=== PATIENT | male | born 1985 | race Caucasian/White ===

== ENCOUNTER 2018-03-12 19:10 | Emergency (ER) | payer MEDICAID, SELFPAY ==
[2018-03-12 19:10] VITALS: BP 143/7; PULSE 88; RESP 16; TEMP 36.7; O2SAT 98; BMI 15.8
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
[2018-03-12] MEDS: Naproxen 250 MG Tablet 500 MG PO (21:02)
[2018-03-12 21:15] VITALS: PULSE 68; RESP 18; O2SAT 98
== END 2018-03-12 21:16 | disposition home or self-care (01) ==
PROVIDERS: Emergency Provider Emergency Medicine; Family Provider Family Medicine; PCP Family Medicine
DX: M54.5 Low back pain (principal); R20.2 Paresthesia of skin; Z72.0 Tobacco use
CPT/HCPCS: 99283

== ENCOUNTER 2018-12-03 07:12 | Emergency (ER) | payer MEDICAID, SELFPAY ==
[2018-12-03 07:13] VITALS: BP 126/68; PULSE 87; RESP 16; TEMP 38; O2SAT 96; BMI 17.8
--- NOTE | 2018-12-03 07:40 | ED.VISSUMM ---
- ER Visit Summary Date of Service: 12/03/18 Chief Complaint: Abscess History of Present Illness: The patient is a [address] Chris chowdary. He reports that he is an abscess to his left forearm that began 3 to 4 days ago. States he has pain that is 7 out of 10 in severity. Reports this morning he has been nausea and vomited once. He denies any abdominal pain. He does admit to a little cough. This is nonproductive. No shortness of breath. He has had a subjective fever and chills. Physical Examination: Vitals: 100.4, 126/68, 87, 16, 96% on room air which is not hypoxic. General: Well-nourished and well-developed. Head: Normocephalic atraumatic. Neck: Supple, no lymphadenopathy. No JVD. Nontender. Cardiovascular: Regular rate and rhythm. No murmurs. Respiratory: No respiratory distress. Clear to auscultation bilaterally. Abdominal: Soft, nontender, nondistended, normal bowel sounds. No guarding, rebound, or peritoneal signs. Back: Nontender. Extremities: Mild tenderness to palpation to the back of his left forearm where there is a 3 cm abscess with minimal surrounding erythema or induration. He is neurovascular intact distally. No edema. Neurologic: Alert and oriented ?3. Cranial nerves II through XII are intact. Normal strength and sensation. Psych: Normal affect. Emergency Department Course and Treatment: Patient does not have track hines. He does have a history of opiate use. However, he is on Suboxone and states that he has not used for 5 years. He had an IV placed and was given Toradol and Zofran IV. He had an I&D performed and tolerated it well. Treatment Plan: Patient will be discharged with Zofran and doxycycline. Instructed to follow-up Dr. Sahni in 2 days for a wound check. Return to the emergency department for any worsening symptoms. Disposition: To home in improved and stable condition. Impression: 1. Abscess left forearm. 2. I&D. Procedure Note: Abscess was cleansed with chlorhexidine soap. Anesthetized with 1% lidocaine without epinephrine. An incision was made with an 11 scalpel blade. A moderate amount of pus was drained. Curved hemostats were used to break up loculations. The wound was copiously irrigated with normal saline. It was loosely packed with iodoform gauze. The patient tolerated it well. This note was generated with [employer] dictation software. It may contain incorrect words, spelling, and punctuation that were not noted in review of the chart prior to signing ED Disposition - Plan for ED Patient: Instructions: ABSCESS, Incision and Drainage Prescriptions: Doxycycline 100 mg PO BID #20 cap Prescription Printed Ibuprofen [Motrin] 800 mg PO TID PRN PRN #20 tab PRN Reason: Pain Prescription Printed Ondansetron [Zofran Odt] 4 mg PO Q8H PRN PRN #10 tab PRN Reason: Nausea Prescription Printed Referrals: Chelsie Sahni DO [STAFF PHYSICIAN] - 2 Days for wound check
[2018-12-03] MEDS: 0.9% Normal Saline 1,000 ML 1000 ML IV (08:36)
[2018-12-03] MEDS: Ketorolac 30 MG/ML Syringe IV (08:36)
[2018-12-03] MEDS: Ondansetron 4 MG/2 ML Vial IV (08:36)
== END 2018-12-03 09:11 | disposition home or self-care (01) ==
PROVIDERS: Emergency Provider Emergency Medicine; Family Provider Family Medicine; PCP Family Medicine
DX: L02.414 Cutaneous abscess of left upper limb (principal); R05 Cough; R11.2 Nausea with vomiting, unspecified; F31.9 Bipolar disorder, unspecified; F41.9 Anxiety disorder, unspecified; Z79.899 Other long term (current) drug therapy; F17.200 Nicotine dependence, unspecified, uncomplicated
CPT/HCPCS: 10060; 96361; 96374; 96375; 99285; J7030; A4216; J2405

== ENCOUNTER 2018-12-23 21:36 | Emergency (ER) | payer MEDICAID, SELFPAY ==
[2018-12-23 21:39] VITALS: BP 127/73; PULSE 89; RESP 16; TEMP 36.7; O2SAT 97; BMI 15.1
--- NOTE | 2018-12-23 22:29 | ED.VIS.LOWEX ---
History of Present Illness Chief Complaint: Abscess Narrative: Patient presenting secondary to an abscess. Patient reports that over the last 3 days he has had the emergence of an abscess on his left thigh. He reports he has a history of these in the past. He reports that he used to be an IV drug user, has been clean for quite some time now. Patient denies any fevers associated with this. Pain is mild. No spontaneous drainage. Past Medical History - Allergies and Home Meds Allergies/Adverse Reactions: Allergies red dye Allergy (Verified 12/23/18 21:39) Swelling Primary Care Physician: Cal Ibrahim MD [Primary Care Provider] - 3-5 Days Smoking Status: Current every day smoker Review of Systems All systems negative except as indicated General: Denies: Fever Skin: Reports: Abscess Physical Exam Vital Signs/Narrative: Vital Signs Temp Pulse Resp BP Pulse Ox 12/23/18 21:39 98.1 F 89 16 127/73 H 97 - Extremity Exam Left Femur: - - Left medial thigh shows evidence of approximately a 3 cm area of fluctuance with small amount of surrounding erythema. No lymphogenic streaking. Tenderness to palpation noted in the area. General: Well nourished, Well developed Head: Normocephalic, Atraumatic Eyes: Perrl, EOMI ENT: No Trauma, Moist Mucous Membranes Neck: Nontender, Full ROM Cardiovascular: Regular rate, Regular rhythm, No murmurs Respiratory: No distress, CTA bilaterally, Chest nontender Abdomen: Soft, Nontender, Nondistended, Normal bowel sounds Neurological: Alert, Oriented x3, Cranial nerves II-XII grossly intact, Normal Strength, Normal Sensation Diagnostic/Tx/Re-eval - Medical Decision Making Patient presented with a thigh abscess. I did recommend to the patient that we perform incision and drainage, but he declined this. I did inform him that there is a high likelihood of antibiotic failure, but the patient will be placed on a course of Bactrim and Bactroban ointment and was recommended on warm compresses and follow-up with primary care. ED Disposition - Plan for ED Patient: Disposition: Home or Assisted Living Diagnosis: Abscess of left thigh Instructions: ABSCESS, Antiobiotic Treatment Only Prescriptions: Smz/Tmp Ds [Bactrim Ds] 1 tab PO BID #14 tab Prescription Printed Mupirocin [Bactroban] 1 applic TOPICAL TID #1 tube Prescription Printed Referrals: Cal Ibrahim MD [Primary Care Provider] - 3-5 Days
[2018-12-23] MEDS: Smz/Tmp Ds Tablet 1 TABLET PO (22:33)
[2018-12-23 22:49] VITALS: BP 122/60; PULSE 81; RESP 18; O2SAT 98
== END 2018-12-23 22:50 | disposition home or self-care (01) ==
LOC: ED 22:34
PROVIDERS: Emergency Provider Emergency Medicine; Family Provider Family Medicine; PCP Family Medicine
DX: L02.416 Cutaneous abscess of left lower limb (principal); F17.200 Nicotine dependence, unspecified, uncomplicated
CPT/HCPCS: 99283

== ENCOUNTER 2019-02-26 00:01 | Emergency (ER) | payer MEDICAID, SELFPAY ==
[2019-02-26 00:04] VITALS: BP 127/70; PULSE 95; RESP 16; TEMP 36.8; O2SAT 98; BMI 16.7
--- NOTE | 2019-02-26 00:17 | ED.VISSUMM ---
- ER Visit Summary Date of Service: 02/26/19 Chief Complaint: [Redness and swelling of the right arm History of Present Illness: The patient is a 33 M [presents to the emergency department with redness and swelling in the right arm that he noticed about an hour ago. Patient states that he has prior history of heroin addiction but has been clean for about 5 years. Patient states he is been under a lot of stress and has had the urge to shoot up. Patient states that for 5 days ago he decided to attempt to shoot icewater into his vein to feel the washburn. The fevers. Patient did state that he had some sweats yesterday that lasted about few minutes after getting home from the [facility] and taken off his socks. No further chills or sweats today.] Physical Examination: [HEENT-PERRLA, EOMI. Cranial nerves II through XII grossly intact. TMs clear. Mucous membranes moist. No adenopathy. Cardiovascular-regular rate and rhythm without murmur or ectopy Lungs-clear to auscultation, chest wall stable without crepitus or subcu emphysema Abdomen-normoactive bowel sounds, soft, nontender, no rebound or rigidity, no peritoneal signs. Extremities-intact ?4, normal range of motion, normal pulses, atraumatic. Right arm-patient does have erythema to the upper arm along the distribution of the cephalic vein and there is some slight induration of the cephalic vein. No significant edema of the arm. He is neurovascular intact distally with normal station normal cap refill. No abscesses noted.] Test Results: [None indicated] Emergency Department Course and Treatment: [We will start on clindamycin and given a dose of naproxen.] Treatment Plan: [Patient will be given a perception for clindamycin and also advised to use ibuprofen or naproxen. Also advised to use warm compresses to the area. I suspect patient likely has a superficial thrombophlebitis. Will cover him with clindamycin for possible early cellulitis. Should follow-up with his primary care physician within the next 2 to 3 days for repeat exam and wound check.] Disposition: [Discharged home in stable condition] Impression: [Colitis right arm Superficial thrombophlebitis] This note was generated with [employer] dictation software. It may contain incorrect words, spelling, and punctuation that were not noted in review of the chart prior to signing ED Disposition - Plan for ED Patient: Referrals: Cal Ibrahim MD [Primary Care Provider] -
--- NOTE | 2019-02-26 00:21 | ED.DEP ---
ED Disposition - Plan for ED Patient: Instructions: Cellulitis, THROMBOPHLEBITIS, Superficial Prescriptions: Clindamycin HCl [Cleocin] 300 mg PO Q6H #40 cap Prescription Printed Naproxen [Naprosyn] 500 mg PO BID PRN #20 tab Prescription Printed Referrals: Cal Ibrahim MD [Primary Care Provider] - 2 Days for wound check
[2019-02-26] MEDS: Naproxen 500 MG Tablet PO (00:24)
[2019-02-26] MEDS: Clindamycin HCl 150 MG Capsule 300 MG PO (00:24)
[2019-02-26 00:31] VITALS: RESP 17
== END 2019-02-26 00:31 | disposition home or self-care (01) ==
PROVIDERS: Emergency Provider Emergency Medicine; Family Provider Family Medicine; PCP Family Medicine
DX: L03.113 Cellulitis of right upper limb (principal); I80.8 Phlebitis and thrombophlebitis of other sites; Z72.0 Tobacco use
CPT/HCPCS: 99283

== ENCOUNTER 2019-03-15 11:06 | Emergency (ER) | payer MEDICAID, SELFPAY ==
[2019-03-15 11:07] VITALS: BP 113/78; PULSE 97; RESP 17; TEMP 36.3; O2SAT 98; BMI 16.8
--- NOTE | 2019-03-15 12:34 | ED.VIS.GEN ---
History of Present Illness Chief Complaint: Dental Informant: Patient Onset: Days Narrative: Patient presents to the ED with left-sided dental pain. He states left upper dental pain is greater than the lower. He does have poor dentition he reports. He has been trying Orajel and ibuprofen without relief. He is requesting dental block.. He denies any fever, chills, nausea, vomiting. He is planning on contacting a dentist on Sunday. Past Medical History - Allergies and Home Meds Allergies/Adverse Reactions: Allergies red dye Allergy (Verified 03/15/19 11:07) Swelling Primary Care Physician: Cal Ibrahim MD [Primary Care Provider] - Smoking Status: Current every day smoker Review of Systems General: Denies: Chills, Fever, Sweats Eyes: Denies: Visual changes - bilaterally, Diplopia ENT: Reports: - - Dental pain. Denies: Rhinorrhea, Sore throat Cardiovascular: Denies: Chest pain, Palpitations Respiratory: Denies: Dyspnea, Cough, Dyspnea on exertion Gastrointestinal: Denies: Abdominal pain, Nausea, Vomiting, Diarrhea, Melena, Hematochezia Genitourinary: Denies: Dysuria, Hematuria, Frequency Musculoskeletal: Denies: Back pain, Extremity Pain Skin: Denies: Rash, Wounds Neurological: Denies: Headache, Weakness, Numbness Physical Exam Vital Signs/Narrative: Vital Signs Temp Pulse Resp BP Pulse Ox 03/15/19 11:07 97.3 F L 97 17 113/78 98 General: Well nourished, Well developed, No Acute Distress Head: Normocephalic, Atraumatic Eyes: Perrl, EOMI ENT: Moist mucous membranes, No rhinorrhea, - - Poor dentition. Fracture to left upper molar. No surrounding abscess. Oropharynx clear. Neck: Supple, Nontender Cardiovascular: Regular rate, Regular rhythm, No murmurs Respiratory: No distress, CTA bilaterally, Chest nontender Abdomen: Soft, Nontender, Nondistended, Normal bowel sounds Back: Nontender, Normal Inspection Extremities: Nontender, No edema Skin: Normal color, No rash Neurological: Alert, Oriented x3, Cranial nerves II-XII grossly intact, Normal Strength, Normal Sensation Psychological: Normal affect, Normal Mood Diagnostic/Tx/Re-eval - Medical Decision Making Patient presents to the ED with left-sided dental pain. I was able to perform history and physical exam on the patient. I discussed anti-inflammatories and the potential for prescription of antibiotic therapy, however patient declined. He states he would just like a dental block. Prior to being evaluated by attending physician, patient stated that he would come back when the ER was not as busy. Patient was in no acute distress. Impression: L sided dental pain Disposition: [facility] ED Disposition - Plan for ED Patient: Referrals: Cal Ibrahim MD [Primary Care Provider] -
== END 2019-03-15 12:42 | disposition left against medical advice (07) ==
PROVIDERS: Emergency Provider Physician Assistant; Family Provider Family Medicine; PCP Family Medicine
DX: K08.89 Other specified disorders of teeth and supporting structures (principal); F17.200 Nicotine dependence, unspecified, uncomplicated
CPT/HCPCS: 99282

== ENCOUNTER 2019-05-23 20:21 | Emergency (ER) | payer MEDICAID, SELFPAY ==
[2019-05-23 20:22] VITALS: BP 147/90; PULSE 111; RESP 14; TEMP 36.9; O2SAT 94; BMI 19.3
--- NOTE | 2019-05-23 20:27 | EKG12_ITS ---
Test Reason : CP Blood Pressure : / mmHG Vent. Rate : 094 BPM Atrial Rate : 094 BPM P-R Int : 160 ms QRS Dur : 088 ms QT Int : 354 ms P-R-T Axes : 074 079 068 degrees QTc Int : 442 ms Normal sinus rhythm Nonspecific ST abnormality Abnormal ECG Confirmed by CHRIS REED, NIRANJAN ([id number]), associate editor CAMI SHEPARD ([id number]) on 05/25/2019 10:07:52 AM Referred By: YENNY Confirmed By:WILFRID PEREZ MD
--- NOTE | 2019-05-23 20:55 | RAD_ITS ---
STUDY: X-RAY CHEST REASON FOR EXAM: Male, 33 years old. Chest tightness and anxiety. TECHNIQUE: PA and lateral. COMPARISON: 11/22/2016. FINDINGS: The lungs are clear and expanded. There is no demonstrated pleural abnormality. Normal size heart. Normal mediastinum and danita. Normal visualized pulmonary arteries. Normal visualized aortic arch and descending thoracic aorta. Normal visualized thoracic spine. Normal visualized ribs, clavicles, and shoulders. There is no demonstrated abnormality of the visualized soft tissue structures of the upper abdomen. RAD/Chest PA and Lateral IMPRESSION: Normal x-ray examination of the chest. Electronically Signed: Darcie Tiwari MD at 22:47 EST Tel , Service support ,
[2019-05-23] MEDS: cycloBENZAPRine HCl 10 MG Tablet PO (22:24)
[2019-05-23 22:25] VITALS: BP 147/90; PULSE 67; RESP 12; O2SAT 97
--- NOTE | 2019-05-23 23:10 | ED.VISSUMM ---
- ER Visit Summary Date of Service: 05/23/19 Chief Complaint: Chest pain History of Present Illness: The patient is a 33 M who presents with 1 hour of chest pain. The pain feels like pressure. It is over his left chest and radiates to the back. Associated with tiredness, eyes burning, fever, chills, and sweats. Nothing seemed to bring this on or make it worse. Nothing seems to make it better. He never had this before. He is a smoker but denies any other medical history. Denies any history of heart disease, aortic disease, lung disease, or blood clots. Denies trauma. Physical Examination: Heart rate 111. Otherwise vitals normal. Afebrile. He appears uncomfortable but not toxic or in distress. Heart is tachycardic but regular. Lungs are clear. Chest wall diffusely tender to palpation over the left side. Pain is reproducible. Abdomen is soft. Extremities nontender with no edema. Skin is normal. Test Results: EKG shows sinus rhythm at a rate of [address] changes. No sign of ischemia or infarction pattern. Chest x-ray normal. Emergency Department Course and Treatment: Patient presents with chest pain and infectious symptoms. I was concerned for bronchitis or pneumonia. He has nothing to suggest cardiac disease, PE, aortic disease. His chest x-ray was normal. His EKG was unremarkable. Patient declined pain medicine. Later, he requested a muscle relaxer. He was treated with Flexeril. I suspect this is myofascial pain, and there may be some component of anxiety. He has a history of this. He is otherwise low or no risk for other thoracic pathology. No indication for further testing, hospitalization, or other emergent care. Patient will be discharged on non-narcotic pain meds and muscle relaxers. Return for any new or worsening issues. Treatment Plan: As above Disposition: Discharge Impression: Atypical chest pain This note was generated with [employer] dictation software. It may contain incorrect words, spelling, and punctuation that were not noted in review of the chart prior to signing ED Disposition - Plan for ED Patient: Referrals: Cal Ibrahim MD [Primary Care Provider] -
--- NOTE | 2019-05-23 23:14 | ED.DEP ---
ED Disposition - Plan for ED Patient: Instructions: CHEST PAIN, Uncertain Cause Prescriptions: cycloBENZAPRine HCl [Flexeril] 10 mg PO TID PRN #20 tablet PRN Reason: Muscle Spasm Naproxen [Naprosyn] 500 mg PO BID PRN #20 tablet Referrals: Cal Ibrahim MD [Primary Care Provider] -
[2019-05-23 23:47] VITALS: BP 147/90; PULSE 60; RESP 15; O2SAT 96
== END 2019-05-23 23:47 | disposition home or self-care (01) ==
PROVIDERS: Emergency Provider Emergency Medicine; Family Provider Family Medicine; PCP Family Medicine
DX: R07.89 Other chest pain (principal); F41.9 Anxiety disorder, unspecified; Z72.0 Tobacco use
CPT/HCPCS: 71046; 93005; 99285; J7030; A4216

== ENCOUNTER 2019-05-27 18:57 | Emergency (ER) | payer MEDICAID, SELFPAY ==
[2019-05-27 18:57] VITALS: BP 136/91; PULSE 95; RESP 15; TEMP 36.9; O2SAT 100; BMI 16.7
--- NOTE | 2019-05-27 19:11 | ED.VIS.GEN ---
History of Present Illness Chief Complaint: Cellulitis Informant: Patient Onset: Days Context: Gradual Onset Timing: Continuous Current Severity: Moderate Maximum Severity: Moderate Narrative: The patient presents to the emergency department with right elbow pain. He states that for the past 2 or 3 days, he had some redness along his right elbow. He states it would hurt to fully extend the elbow. He denies any trauma. He denies any fevers or chills. He states today, the redness got a little bit worse. He does have a history of IV drug abuse, but states he is been clean for greater than 6 months. He denies any history immunosuppression. He is also concerned that he may have a dental infection. He states he just wanted to get it all checked out. Prior similar symptoms: No Recent Illness/Hospitalization: No Past Medical History - Allergies and Home Meds Allergies/Adverse Reactions: Allergies red dye Allergy (Verified 05/27/19 18:59) Swelling Primary Care Physician: Cal Ibrahim MD [Primary Care Provider] - Prior records reviewed: Yes Past Medical History: - Surgical History: noncontributory Smoking Status: Current every day smoker Review of Systems General: Denies: Chills, Fever, Sweats Eyes: Denies: Visual changes - bilaterally, Diplopia ENT: Denies: Rhinorrhea, Sore throat Cardiovascular: Denies: Chest pain, Palpitations Respiratory: Denies: Dyspnea, Cough, Dyspnea on exertion Gastrointestinal: Denies: Abdominal pain, Nausea, Vomiting, Diarrhea, Melena, Hematochezia Genitourinary: Denies: Dysuria, Hematuria, Frequency Musculoskeletal: Denies: Back pain, Extremity Pain Skin: Denies: Rash, Wounds Neurological: Denies: Headache, Weakness, Numbness Physical Exam Vital Signs/Narrative: Vital Signs Temp Pulse Resp BP Pulse Ox 05/27/19 18:57 98.5 F 95 15 136/91 H 100 Inital Vital Signs reviewed: Yes General: Well nourished, Well developed, No Acute Distress Head: Normocephalic, Atraumatic Eyes: Perrl, EOMI ENT: Moist mucous membranes, No rhinorrhea Neck: Supple, Nontender Cardiovascular: Regular rate, Regular rhythm, No murmurs Respiratory: No distress, CTA bilaterally, Chest nontender Abdomen: Soft, Nontender, Nondistended, Normal bowel sounds Back: Nontender, Normal Inspection Extremities: No edema, Tenderness - Mild tenderness and erythema over the right elbow bursa sac. No skin laceration or evidence of trauma. Mild surrounding cellulitis. No streaking. Normal pulses. Skin: Normal color, No rash Neurological: Alert, Oriented x3, Cranial nerves II-XII grossly intact, Normal Strength, Normal Sensation Psychological: Normal affect, Normal Mood Diagnostic/Tx/Re-eval - Medical Decision Making The patient does have an olecranon bursitis. I do have some suspicion that this may be infectious, but the patient also has overlying cellulitis. I am hesitant to drain the area given the cellulitis. He said no trauma. The skin is intact. The pain does not involve the joint itself. It is only on the extremes of motion. Given his also reports of dental pain, I am going to treat him single line with clindamycin. He is comfortable with this plan of care. I did nurses' association counselor him on the importance of having this reevaluated within the next 24 to 48 hours if is not improving or worsening in any way. He is comfortable with this plan of care. Impression 1. Olecranon bursitis with cellulitis ED Disposition - Plan for ED Patient: Instructions: Bursitis, Elbow (Olecranon) Prescriptions: Clindamycin [Cleocin] 300 mg PO 4X/DAY #80 cap Prescription Printed Referrals: Cal Ibrahim MD [Primary Care Provider] -
== END 2019-05-27 19:33 | disposition home or self-care (01) ==
LOC: ED 19:18
PROVIDERS: Emergency Provider Emergency Medicine; Family Provider Family Medicine; PCP Family Medicine
DX: M70.21 Olecranon bursitis, right elbow (principal); L03.113 Cellulitis of right upper limb; F17.200 Nicotine dependence, unspecified, uncomplicated
CPT/HCPCS: 99282

== ENCOUNTER 2019-06-04 18:53 | Emergency (ER) | payer MEDICAID, SELFPAY ==
[2019-06-04 18:53] VITALS: BP 116/85; PULSE 82; RESP 16; TEMP 37.6; O2SAT 99; BMI 16.7
--- NOTE | 2019-06-04 19:41 | ED.VIS.INJ ---
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 He cut his left finger with a utility knife. This occurred 3 hours prior to presentation. Tetanus is up-to-date. He denies paresthesia, anesthesia or motor weakness. He has no other complaints. Prior similar symptoms: Yes Recent Illness/Hospitalization: No - Past Medical History (1) No significant past medical history Status: Acute Past Medical History - Allergies and Home Meds Allergies/Adverse Reactions: Allergies red dye Allergy (Verified 05/27/19 18:59) Swelling Primary Care Physician: Cal Ibrahim MD [Primary Care Provider] - Prior records reviewed: No Past Medical History: None Surgical History: noncontributory Lives: Alone Smoking Status: Current every day smoker Alcohol: Rare Drugs: None Review of Systems Musculoskeletal: Denies: Myalgias, Arthralgias, Neck pain, Back pain, Swelling, Extremity Pain Skin: Reports: Wounds. Denies: Rash, Abrasions Neurological: Denies: Weakness, Parasthesia, Numbness Hematologic: Denies: Easy bruising, Easy bleeding Physical Exam Vital Signs/Narrative: Vital Signs Temp Pulse Resp BP Pulse Ox 06/04/19 18:53 99.7 F H 82 16 116/85 H 99 Inital Vital Signs reviewed: Yes General: Well nourished, Well developed Head: Normocephalic, Atraumatic Eyes: Perrl, EOMI. Negative for: Pale conjunctiva, Scleral icterus Cardiovascular: Regular rate, Regular rhythm, No murmurs Respiratory: No distress Extremeties: There is a 2.3 cm laceration proximal to the PIP joint left index finger on the radial side. The flexor digitorum superficialis and flexor digitorum profundus are intact. The extensor in the site tendon is intact. Capillary refill is normal. Two-point discrimination is normal. There is no laxity of the collateral ligaments with stressing. Skin: Normal color, Trauma Neurological: Alert, Oriented x3, Cranial nerves II-XII grossly intact, Normal Strength, Normal Sensation Psychological: Normal affect, Normal Mood Diagnostic/Tx/Re-eval - Medical Decision Making Patient has laceration which will require repair. Please read procedure note. Patient was prepped draped sterile manner. The area anesthetized by digital block. The wound was irrigated and closed using 5-0 Ethilon. Procedures - Lacerations No standard instances Length: 0.12 in Depth: Sub Q Shape: Linear Prep: Shbecca-Clens Laceration Repair: Digital block Irrigated (ml): 150 Number of Sutures/Tony: 4 Suture Information: Ethilon, Simple, 5-0 ED Disposition - Plan for ED Patient: Disposition: Home or Assisted Living Diagnosis: Laceration of left index finger Instructions: LACERATION, Hand Referrals: Cal Ibrahim MD [Primary Care Provider] - 10 Day for suture removal Additional Instructions: Clean wound with peroxide and Q-tip 3 times a day then apply bacitracin ointment.
[2019-06-04 20:00] VITALS: RESP 18
== END 2019-06-04 20:01 | disposition home or self-care (01) ==
PROVIDERS: Emergency Provider Emergency Medicine; Family Provider Family Medicine; PCP Family Medicine
DX: S61.211A Laceration without foreign body of left index finger without damage to nail, initial encounter (principal); W26.0XXA Contact with knife, initial encounter; Y93.9 Activity, unspecified; Y92.9 Unspecified place or not applicable; F17.200 Nicotine dependence, unspecified, uncomplicated
CPT/HCPCS: 12001; 99284

== ENCOUNTER 2019-08-10 16:35 | Emergency (ER) | payer MEDICAID, SELFPAY ==
[2019-08-10 16:35] VITALS: BP 126/93; PULSE 134; RESP 16; TEMP 37.8; O2SAT 98; BMI 19.3
--- NOTE | 2019-08-10 16:51 | RAD_ITS ---
STUDY: X-RAY - RIGHT ELBOW REASON FOR EXAM: Male, 33 years old. Trauma TECHNIQUE: 3 view(s) of the elbow. COMPARISON: None. FINDINGS: The bones of the elbow are intact and located. Mineralization is normal. Soft tissues are intact. There is a small joint effusion. RAD/Elbow min 3 Views IMPRESSION: No acute fracture or dislocation. Small joint effusion. Electronically Signed: Terry Monahan, at 17:48 EST Tel , Service support ,
--- NOTE | 2019-08-10 16:51 | RAD_ITS ---
STUDY: X-RAY CHEST REASON FOR EXAM: Male, 33 years old. COUGH , CURRENT SMOKER TECHNIQUE: Frontal and lateral views of the chest COMPARISON: 23 May 2019 FINDINGS: The lungs are clear and hyper expanded. There is no demonstrated pleural abnormality. Normal size heart. Normal mediastinum and danita. Normal visualized pulmonary arteries. Normal visualized aortic arch and descending thoracic aorta. Normal visualized thoracic spine. Normal visualized ribs, clavicles, and shoulders. There is no demonstrated abnormality of the visualized soft tissue structures of the upper abdomen. RAD/Chest PA and Lateral IMPRESSION: Mild emphysema. No acute findings Electronically Signed: Terry Monahan, at 17:39 EST Tel , Service support ,
--- NOTE | 2019-08-10 16:51 | RAD_ITS ---
STUDY: X-RAY - LUMBAR SPINE REASON FOR EXAM: Male, 33 years old. FALL 3 days ago,lower back pain TECHNIQUE: 3 view(s) of the lumbar spine were obtained. COMPARISON: 06 January 2016 FINDINGS: Normal lumbar lordosis. There is no substantial scoliosis. There is a normal alignment of the vertebrae. Normal vertebral bodies and endplates. Normal disc space heights. The soft tissue structures are unremarkable. RAD/Lumbar Spine 2 or 3 Views IMPRESSION: Normal x-ray examination of the lumbar spine. Electronically Signed: Terry Monahan, at 17:44 EST Tel , Service support ,
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
[2019-08-10 17:08] VITALS: RESP 16
[2019-08-10] MEDS: Amox/Clavulanate 875 MG Tablet PO (18:27)
[2019-08-10 18:36] VITALS: RESP 16
== END 2019-08-10 18:36 | disposition home or self-care (01) ==
PROVIDERS: Emergency Provider Emergency Medicine; PCP Family Medicine
DX: J40 Bronchitis, not specified as acute or chronic (principal); S39.012A Strain of muscle, fascia and tendon of lower back, initial encounter; K04.7 Periapical abscess without sinus; S53.401A Unspecified sprain of right elbow, initial encounter; W20.8XXA Other cause of strike by thrown, projected or falling object, initial encounter; Y93.9 Activity, unspecified; Y92.89 Other specified places as the place of occurrence of the external cause; Y99.9 Unspecified external cause status; F31.9 Bipolar disorder, unspecified; F90.9 Attention-deficit hyperactivity disorder, unspecified type; F17.200 Nicotine dependence, unspecified, uncomplicated
CPT/HCPCS: 71046; 72100; 73080; 99284

== ENCOUNTER 2019-08-11 18:39 | Emergency (ER) | payer MEDICAID, SELFPAY ==
[2019-08-10 16:35] VITALS: BMI 19.3
[2019-08-11 18:39] VITALS: BP 125/63; PULSE 96; RESP 18; TEMP 38.2; O2SAT 100; BMI 18.3
--- NOTE | 2019-08-11 20:22 | ED.DCSUM_ITS ---
- ER Visit Summary Date of Service: 08/11/19 Chief Complaint: Cough with nausea, vomiting and diarrhea History of Present Illness: The patient is a 33 M bipolar disorder. Was seen the other day for a fall that he had from a roof while cutting down a antenna. He injured his elbow but the x-rays of his elbow and chest and back were all negative. Presents today due to cough with nausea, vomiting and diarrhea. Denies shortness of breath. Physical Examination: Young male no acute distress vital signs stable. Low- grade temperature 100.8. He does not look septic or toxic. Pulse ox 90% on room air no signs of hypoxia. H EENT exam unremarkable. Posterior pharynx more normal. Moist because membranes. TMs normal. No facial or head trauma. C- spine nontender. No lymphadenopathy. No meningismus. Lungs clear to auscultation bilaterally. Heart regular rhythm rate about 95 no murmur. Chest wall nontender. Abdomen soft nontender normal bowel sounds no peritoneal signs. Extremities the left upper and both lower extremities are nontender full range of motion no swelling. His right elbow is swollen. Tender. 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 Skin is intact. No cellulitis. He has decreased range of motion of right elbow due to pain and swelling. Test Results: No tests today. I did review his x-rays from yesterday. The chest x-ray, right elbow and lumbar spine. They were all negative. There was a small effusion of the right elbow but no obvious fracture or dislocation. Emergency Department Course and Treatment: Here for his fever. I do believe is secondary to viral syndrome. Will need to follow-up with orthopedics for the right elbow if it is not improving. He needs to ice it and elevate it. Anti- inflammatories for pain and inflammation. Treatment Plan: Follow-up with primary care physician as needed. Follow-up with orthopedics for his right elbow. Disposition: Discharge Impression: Acute viral syndrome Status post recent fall with right elbow injury but no fracture or dislocation by x-ray This note was generated with [employer] software. It may contain incorrect words, spelling, and punctuation that were not noted in review of the chart prior to signing ED Disposition - Plan for ED Patient: Referrals: Cal Ibrahim MD [Primary Care Provider] -
--- NOTE | 2019-08-11 20:24 | ED.DEP ---
ED Disposition - Plan for ED Patient: Disposition: Home or Assisted Living Instructions: VIRAL SYNDROME (Adult) Referrals: Cal Ibrahim MD [Primary Care Provider] - As Needed Yoan Buck MD [STAFF PHYSICIAN] - 1 Week if not improving Additional Instructions: Tylenol and Motrin for your fever and for the swelling of your right elbow pain. You have to ice and elevate your right elbow to decrease the swelling. Follow-up with Dr. Demarco Buck if your right elbow is not improving he is 1 of the orthopedic doctors with the [facility].
--- NOTE | 2019-08-11 20:48 | ED.RN ---
PT OBSERVED LEAVING, ASKED HIM TO WAIT FOR REGISTRATION AND DISCHARGE, PT KEPT WALKING.
== END 2019-08-11 21:03 | disposition home or self-care (01) ==
LOC: ED 21:02
PROVIDERS: Emergency Provider Emergency Medicine; PCP Family Medicine
DX: B34.9 Viral infection, unspecified (principal); F31.9 Bipolar disorder, unspecified; Z91.81 History of falling
CPT/HCPCS: 99281

== ENCOUNTER 2020-04-16 03:57 | Emergency (ER) | payer MEDICAID, SELFPAY ==
[2020-04-16 03:59] VITALS: BP 149/90; PULSE 68; RESP 16; TEMP 36.2; O2SAT 100; BMI 17.4
--- NOTE | 2020-04-16 04:04 | ED.VIS.GEN ---
History of Present Illness Chief Complaint: Dental Informant: Patient Narrative: Patient presents the emergency room with dental pain. He tells me that earlier today he had a couple teeth broke apart. He has had long standing dental issues. He reports that he has an emergency appointment later this morning and about 5 hours. He has tried [id number] medicines nothing is helping. He does not wish any narcotics. He has not been on any antibiotics. No fevers. He is a smoker. - Past Medical History (1) ADHD Status: Chronic (2) Bipolar disorder Status: Chronic Past Medical History - Allergies and Home Meds Allergies/Adverse Reactions: Allergies red dye Allergy (Verified 04/16/20 03:57) Swelling Primary Care Physician: Cal Ibrahim MD [Primary Care Provider] - Prior records reviewed: Yes Surgical History: noncontributory Smoking Status: Current every day smoker Drugs: None Review of Systems General: Denies: Chills, Fever, Sweats Eyes: Denies: Visual changes - bilaterally, Diplopia ENT: Reports: - - Dental pain. Denies: Rhinorrhea, Sore throat Cardiovascular: Denies: Chest pain, Palpitations Respiratory: Denies: Dyspnea, Cough, Dyspnea on exertion Gastrointestinal: Denies: Abdominal pain, Nausea, Vomiting, Diarrhea, Melena, Hematochezia Genitourinary: Denies: Dysuria, Hematuria, Frequency Musculoskeletal: Denies: Back pain, Extremity Pain Skin: Denies: Rash, Wounds Neurological: Denies: Headache, Weakness, Numbness Physical Exam Vital Signs/Narrative: Vital Signs Temp Pulse Resp BP Pulse Ox 04/16/20 03:59 97.2 F L 68 16 149/90 H 100 Inital Vital Signs reviewed: Yes General: Well nourished, Well developed, No Acute Distress Head: Normocephalic, Atraumatic Eyes: Perrl, EOMI ENT: Moist mucous membranes, No rhinorrhea, - - There is widespread dental decay. Some teeth have very little tooth remaining. There is no focal gum swelling. There is tenderness on the lower right premolar and upper molar. There is no facial erythema. No trismus. Floor the mouth is soft Neck: Supple, Nontender Cardiovascular: Regular rate, Regular rhythm, No murmurs Respiratory: No distress, CTA bilaterally, Chest nontender Abdomen: Soft, Nontender, Nondistended, Normal bowel sounds Back: Nontender, Normal Inspection Extremities: Nontender, No edema Skin: Normal color, No rash Neurological: Alert, Oriented x3, Cranial nerves II-XII grossly intact, Normal Strength, Normal Sensation Psychological: Normal affect, Normal Mood Diagnostic/Tx/Re-eval - Medical Decision Making I can offer the patient a shot of Toradol as a nonnarcotic approach. Also given a dose of Pen-Vee K. He is to follow-up with dentistry as soon as possible. ED Disposition - Plan for ED Patient: Disposition: Home or Assisted Living Diagnosis: Pain due to dental caries Instructions: ED Tooth Pain Prescriptions: Penicillin V Potassium 500 mg PO 4X/DAY #40 tab Prescription Printed Ketorolac [Toradol] 10 mg PO Q8H PRN 4 Days #12 tab PRN Reason: Pain Prescription Printed Referrals: Cal Ibrahim MD [Primary Care Provider] - As Needed Additional Instructions: Follow-up with dentistry as soon as possible
[2020-04-16] MEDS: Ketorolac 60 MG/2 ML Vial IM (04:24)
[2020-04-16] MEDS: Penicillin Vk 250 MG Tablet 500 MG PO (04:25)
[2020-04-16 04:28] VITALS: RESP 16
== END 2020-04-16 04:45 | disposition home or self-care (01) ==
PROVIDERS: Emergency Provider Emergency Medicine; PCP Family Medicine
DX: K02.9 Dental caries, unspecified (principal); F17.200 Nicotine dependence, unspecified, uncomplicated
CPT/HCPCS: 96372; 99281

== ENCOUNTER 2021-12-09 13:52 | Emergency (ER) | payer MEDICAID, SELFPAY ==
[2021-12-09 13:52] VITALS: BP 143/75; PULSE 129; RESP 18; TEMP 36.6; O2SAT 100; BMI 17.3
--- NOTE | 2021-12-09 14:11 | ED.VIS.DENTA ---
HPI History of Present Illness Chief Complaint: Dental Informant: patient Onset/Context/Timing Onset: Month(s) Context: Sudden Onset (Worse) Timing: Continuous Current Severity: Mild Maximum Severity: Moderate Worsened by: Nothing specific Relieved by: NSAIDs and Topicals Associated Symptoms Assocated Symptom - Dental: Negative for fever, jaw swelling, face swelling, cold sensitivity or hot sensitivity Narrative Narrative: Patient is a 36-year-old male with poor dentition who presents with dental pain over the past several days is worse than normal. He also complains of foul taste. He denies fever, chills night sweats. Denies history of medic fever, heart murmur, SBE, being immune suppressed. He denies rash or skin lesions. He denies myalgias or arthralgias. Prior similar symptoms: Yes Recent Illness/Hospitalization: No PFSH PFSH Home Medications clonidine HCl 0.1 mg tablet 0.1 mg PO TID 05/23/17 [History Last Taken Unknown] buprenorphine 8 mg-naloxone 2 mg sublingual film (Suboxone) 1 ea PO BID 06/07/17 [History Last Taken Unknown] lamotrigine 200 mg tablet (Lamictal) 150 mg PO BID 06/07/17 [History Last Taken Unknown] quetiapine 300 mg tablet (Seroquel) 300 mg PO QHS 06/07/17 [History Last Taken Unknown] citalopram 20 mg tablet 30 mg PO DAILY 12/23/18 [History Last Taken Unknown] naproxen 500 mg tablet 500 mg PO BID PRN #20 tabs 05/23/19 [Rx Last Taken Unknown] penicillin V potassium 500 mg tablet 500 mg PO 4X/DAY #40 tabs 04/16/20 [Rx Last Taken Unknown] naproxen 500 mg tablet 500 mg PO BID #14 tabs 12/09/21 [Rx Last Taken Unknown] penicillin V potassium 250 mg tablet 500 mg PO 4X/DAY #40 tabs 12/09/21 [Rx Last Taken Unknown] Allergy/AdvReac Type Severity Reaction Status Date / Time red dye Allergy Swelling Verified 12/09/21 13:55 Social History (Updated 12/09/21 @ 14:[address] New Devi MD) household members: none Smoking Status: Current every day smoker alcohol intake: former substance use type: former substance user and opiates ROS ROS ED Constitutional Constitutional ED: Denies chills, fever(s), subjective, sweats or weight loss Eyes Eyes: Denies blurry vision or change in vision ENT ENT ED: Denies ear pain, rhinorrhea or sore throat Cardiovascular Cardiovascular: Denies chest pain, palpitations or racing heartbeat Respiratory/Chest Respiratory/Chest: Denies cough or dyspnea Gastrointestinal Gastrointestinal: Denies nausea or vomiting Musculoskeletal Musculoskeletal: Denies arthralgias, back pain, myalgias or neck pain Integumentary Denies Abrasions or rash Hematologic/Lymphatic Hematologic/Lymphatic: Denies easy bleeding or easy bruising Allergic/Immunologic Allergic/Immunologic ED: Denies mouth swelling, tongue swelling or urticaria EXAM Physical Exam Const Vital Signs: 12/09/21 13:52 Temperature 98 F Temperature Source Temporal Pulse Rate 129 H Respiratory Rate 18 Blood Pressure 143/75 H Blood Pressure Mean 97 Pulse Ox 100 Oxygen Delivery Method Room Air Positive well nourished and well developed General Appearance ED: well developed and NAD; Negative for pallor HEENT HEENT Narrative: There is no trismus. There is no evidence of Ludewig's angina. Trachea is midline. There is no inspiratory expiratory stridor. Negative for trauma or tenderness Mouth ED: Yes lips normal, Yes tongue normal, Yes salivary gland normal, No mouth trauma and Yes oral and palatal mucosa abnormal Mouth: lips normal, tongue normal, salivary gland normal, No mouth trauma and oral and palatal mucosa abnormal Teeth and Gingiva: abnormal tooth and associated gingiva and caries Throat: posterior oropharynx normal Eyes PERRL and EOMs intact bilaterally General Eye ED: Negative for pale conjunctiva or scleral icterus Neck no lymphadenopathy, supple and no JVD Lymph Lymphatic: no lymphadenopathy noted Resp normal respiratory effort and no retractions Cardio regular rate, regular rhythm, S1 normal heart sound, S2 normal heart sound and no murmurs Extremity normal to inspection and no joint enlargement Neuro Sensorium / Orientation: alert, oriented to person, oriented to place and oriented to time; Negative for orientation impaired Gait (Neuro): normal gait Motor Exam: strength 5/5 throughout Psych mental status grossly normal Skin no rashes or lesions noted and no wounds General Skin Exam: Negative for pallor MDM MDM MDM Narrative Medical decision making narrative: Patient has numerous caries and most likely has a dental abscess. This involves many teeth. We will treat with Pen-Vee K and naproxen. He requested no opiates since he is on Suboxone and has history of drug dependency. Discharge Plan Triage Chief Complaint: Dental ED Provider: New Devi Dx/Rx/DC Orders Clinical Impression: Abscess, dental, Dental caries extending into pulp Prescriptions: New penicillin V potassium 250 mg tablet 500 mg PO 4X/DAY Qty: 40 0RF naproxen 500 mg tablet 500 mg PO BID Qty: 14 0RF No Action clonidine HCl 0.1 MG tablet 0.1 mg PO TID lamotrigine [Lamictal] 200 MG tablet 150 mg PO BID quetiapine [Seroquel] 300 MG tablet 300 mg PO QHS buprenorphine-naloxone [Suboxone] 1 EACH film 1 ea PO BID citalopram 20 MG tablet 30 mg PO DAILY naproxen 500 MG tablet 500 mg PO BID PRN Qty: 20 0RF penicillin V potassium 500 MG tablet 500 mg PO 4X/DAY Qty: 40 0RF Primary Care Provider: Cal Ibrahim Referrals: Cal Ibrahim MD [Primary Care Provider] - As Needed Disposition Disposition: Home, Self Care
[2021-12-09] MEDS: Penicillin Vk 250 MG Tablet 500 MG PO (14:24)
[2021-12-09] MEDS: Naproxen 250 MG Tablet 500 MG PO (14:24)
[2021-12-09 14:27] VITALS: RESP 16
== END 2021-12-09 14:28 | disposition home or self-care (01) ==
LOC: ED 14:20
PROVIDERS: Emergency Provider Emergency Medicine; PCP Family Medicine; Visit Provider Emergency Medicine
DX: K04.7 Periapical abscess without sinus (principal); K02.9 Dental caries, unspecified; F17.200 Nicotine dependence, unspecified, uncomplicated
CPT/HCPCS: 99283

== ENCOUNTER 2022-02-06 10:01 | Emergency (ER) | payer MEDICAID, SELFPAY ==
[2022-02-06 10:03] VITALS: BP 135/80; PULSE 98; RESP 16; TEMP 36.8; O2SAT 100; BMI 17.3
--- NOTE | 2022-02-06 10:23 | EDS_ITS ---
HPI History of Present Illness Chief Complaint: Lower Extremity Injury Detail of Chief Complaint: Right clement wound Informant: patient Onset/Context/Timing Onset: Weeks (3-week) Context: Sudden Onset Narrative Narrative: Patient presents due to concern for possible infection of a right clement wound. He was carrying a box containing a large steel door 3 weeks ago. The bottom of the box gave out and the door slid down striking him in the clement. He has a 4 x 2 cm open wound to his clement. He has been try to keep the area clean. No fever or chills. [facility] Medical History Anxiety and depression Bipolar 1 disorder Substance abuse Home Medications clonidine HCl 0.1 mg tablet 0.1 mg PO TID 05/23/17 [History Last Taken Unknown] buprenorphine 8 mg-naloxone 2 mg sublingual film (Suboxone) 1 ea PO BID 06/07/17 [History Last Taken Unknown] lamotrigine 200 mg tablet (Lamictal) 150 mg PO BID 06/07/17 [History Last Taken Unknown] quetiapine 300 mg tablet (Seroquel) 400 mg PO QHS 06/07/17 [History Last Taken Unknown] citalopram 20 mg tablet 30 mg PO DAILY 12/23/18 [History Last Taken Unknown] doxycycline monohydrate 100 mg capsule 100 mg PO BID #20 caps 02/06/22 [Rx Last Taken Unknown] Allergy/AdvReac Type Severity Reaction Status Date / Time red dye Allergy Swelling Verified 12/09/21 13:55 Social History household members: none Smoking Status: Current every day smoker tobacco type: e-cigarettes alcohol intake: former substance use type: former substance user and opiates ROS ROS ED Constitutional Constitutional ED: Denies chills or fever(s) Eyes Eyes: Denies change in vision or discharge from eye(s) ENT ENT ED: Denies discharge from eye(s), rhinorrhea or sore throat Cardiovascular Cardiovascular: Denies chest pain or palpitations Respiratory/Chest Respiratory/Chest: Denies cough or dyspnea Gastrointestinal Gastrointestinal: Denies abdominal pain, nausea or vomiting Genitourinary Genitourinary ED: Denies dysuria Musculoskeletal Musculoskeletal: Reports extremity pain; Denies back pain Integumentary Reports other Details: Right clement wound ; Denies Abrasions or rash Neurologic Neurologic: Denies headache(s) or weakness Psychiatric Psychiatric: Denies anxiety or depression Allergic/Immunologic Allergic/Immunologic ED: Denies lip swelling or urticaria EXAM Physical Exam Const Vital Signs: 02/06/22 10:03 Temperature 98.2 F Temperature Source Temporal Pulse Rate 98 Respiratory Rate 16 Blood Pressure 135/80 H Blood Pressure Mean 98 Pulse Ox 100 Oxygen Delivery Method Room Air Positive well nourished and well developed General Appearance ED: well developed HEENT Reports normocephalic and head/scalp atraumatic Eyes PERRL and EOMs intact bilaterally Neck supple Chest Wall inspection of chest normal and palpation of chest normal Resp normal respiratory effort and clear to auscultation bilaterally Cardio regular rate and regular rhythm GI normal to inspection, nondistended, normoactive bowel sounds Palpation: soft Back/Spine no CVA tenderness Extremity Extremity Narrative: 4 x 2 cm open wound to the right clement. Granulation tissue noted starting to fill in. No significant drainage or surrounding erythema. Neuro oriented x3 and no sensory deficits noted Sensorium / Orientation: alert Motor Exam: strength 5/5 throughout Psych mental status grossly normal Skin Skin Narrative: Right leg wound as noted above. MDM MDM Treatment and Re-Evaluation Narrative: Patient's tetanus shot is up-to-date. Wound to be cleansed and dressed. He will be placed on doxycycline to help prevent infection. Discharge Plan Triage Chief Complaint: Lower Extremity Injury ED Provider: Diane Gallardo Dx/Rx/DC Orders Clinical Impression: Leg wound, right Instructions: ED Wound Care Prescriptions: New doxycycline monohydrate 100 mg capsule 100 mg PO BID Qty: 20 0RF No Action clonidine HCl 0.1 MG tablet 0.1 mg PO TID lamotrigine [Lamictal] 200 MG tablet 150 mg PO BID quetiapine [Seroquel] 300 MG tablet 400 mg PO QHS buprenorphine-naloxone [Suboxone] 1 EACH film 1 ea PO BID citalopram 20 MG tablet 30 mg PO DAILY Primary Care Provider: Cal Ibrahim Referrals: Cal Ibrahim MD [Primary Care Provider] - 1-2 Weeks Disposition Disposition: Home, Self Care
[2022-02-06] MEDS: Doxycycline 100 MG CAPSULE PO (10:43)
== END 2022-02-06 10:47 | disposition home or self-care (01) ==
LOC: ED 10:36
PROVIDERS: Emergency Provider Emergency Medicine; PCP Family Medicine; Visit Provider Emergency Medicine
DX: S81.801A Unspecified open wound, right lower leg, initial encounter (principal); F31.9 Bipolar disorder, unspecified; F17.290 Nicotine dependence, other tobacco product, uncomplicated; F32.A Depression, unspecified; Z79.899 Other long term (current) drug therapy; W22.8XXA Striking against or struck by other objects, initial encounter
CPT/HCPCS: 99283

== ENCOUNTER 2022-03-26 21:36 | Emergency (ER) | payer MEDICAID, SELFPAY ==
[2022-03-26 21:38] VITALS: BP 122/71; PULSE 87; RESP 15; TEMP 36.9; O2SAT 99; BMI 17.9
[2022-03-26 21:49] VITALS: O2SAT 100
--- NOTE | 2022-03-26 22:00 | EKG12_ITS ---
Test Reason : DYSRHYTHMIA Blood Pressure : / mmHG Vent. Rate : 075 BPM Atrial Rate : 075 BPM P-R Int : 164 ms QRS Dur : 090 ms QT Int : 366 ms P-R-T Axes : 076 069 065 degrees QTc Int : 408 ms Normal sinus rhythm Normal ECG Confirmed by THIAGO REED, ZAK ([id number]), copy editor BEVERLY FARRELL ([id number]) on 03/30/2022 1:06:51 PM Referred By: Confirmed By:ZAK ADS MD
[2022-03-26] MEDS: Acetaminophen 325 MG Tablet 650 MG PO (22:19)
--- NOTE | 2022-03-26 22:20 | RAD_ITS ---
STUDY: X-RAY CHEST REASON FOR EXAM: Male, 36 years old. right sided chest pain TECHNIQUE: PA and lateral views of the chest. COMPARISON: 08/10/2019 FINDINGS: The lungs are clear and expanded. There is no demonstrated pleural abnormality. Normal size heart. Normal mediastinum and danita. Normal visualized pulmonary arteries. Normal visualized aortic arch and descending thoracic aorta. Normal visualized thoracic spine. Normal visualized ribs, clavicles, and shoulders. There is no demonstrated abnormality of the visualized soft tissue structures of the upper abdomen. RAD/Chest PA and Lateral IMPRESSION: Normal x-ray examination of the chest. Electronically Signed: Marko Koch MD at 22:44 EDT ,
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
[2022-03-26 23:15] VITALS: BP 123/76; PULSE 87; RESP 18; O2SAT 100
== END 2022-03-26 23:19 | disposition home or self-care (01) ==
PROVIDERS: Emergency Provider Emergency Medicine; PCP Family Medicine; Visit Provider Emergency Medicine
DX: M54.6 Pain in thoracic spine (principal); F31.9 Bipolar disorder, unspecified; F17.210 Nicotine dependence, cigarettes, uncomplicated; R06.02 Shortness of breath; R07.81 Pleurodynia
CPT/HCPCS: 71046; 93005; 99283

== ENCOUNTER 2022-10-28 16:06 | Emergency (ER) | payer MEDICAID, SELFPAY ==
[2022-10-28 16:07] VITALS: BP 130/78; PULSE 101; RESP 16; TEMP 36.9; O2SAT 97; BMI 16.9
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
[2022-10-28] MEDS: Diphth,Pertuss(Acell),Tet Vac 0.5 ML Vial IM (17:17)
[2022-10-28] MEDS: Smz/Tmp Ds Tablet 1 TABLET PO (17:17)
[2022-10-28 17:40] LABS: Bedside Glucose 104 mg/dL (74-106)
== END 2022-10-28 17:28 | disposition home or self-care (01) ==
PROVIDERS: Emergency Provider Emergency Medicine; PCP Family Medicine; Visit Provider Emergency Medicine
DX: S81.801A Unspecified open wound, right lower leg, initial encounter (principal); L08.9 Local infection of the skin and subcutaneous tissue, unspecified; F17.210 Nicotine dependence, cigarettes, uncomplicated; S81.802A Unspecified open wound, left lower leg, initial encounter; Z23 Encounter for immunization; Z86.14 Personal history of Methicillin resistant Staphylococcus aureus infection
CPT/HCPCS: 82962; 90471; 90715; 99283

== ENCOUNTER 2023-01-10 20:36 | Emergency (ER) | payer MEDICAID, SELFPAY ==
[2023-01-10 20:38] VITALS: BP 130/75; PULSE 71; RESP 18; TEMP 36.7; O2SAT 100; BMI 16.7
--- NOTE | 2023-01-10 21:27 | EX.ED.DYSGE1 ---
HPI History of Present Illness Chief Complaint: Wound Check [facility] Medical History Anxiety and depression Bipolar 1 disorder Substance abuse Home Medications clonidine HCl 0.1 mg tablet 0.1 mg PO TID 05/23/17 [History Last Taken Unknown] buprenorphine 8 mg-naloxone 2 mg sublingual film (Suboxone) 1 ea PO BID 06/07/17 [History Last Taken Unknown] lamotrigine 200 mg tablet (Lamictal) 150 mg PO BID 06/07/17 [History Last Taken Unknown] quetiapine 300 mg tablet (Seroquel) 400 mg PO QHS 06/07/17 [History Last Taken Unknown] citalopram 20 mg tablet 30 mg PO DAILY 12/23/18 [History Last Taken Unknown] doxycycline monohydrate 100 mg capsule 100 mg PO BID #20 caps 02/06/22 [Rx Last Taken Unknown] sulfamethoxazole 800 mg-trimethoprim 160 mg tablet 1 tab PO BID #20 TABLETS 10/28/22 [Rx Last Taken Unknown] sulfamethoxazole 800 mg-trimethoprim 160 mg tablet (Bactrim DS) 1 tab PO BID 10 days #20 tabs 01/10/23 [Rx Last Taken Unknown] Allergy/AdvReac Type Severity Reaction Status Date / Time red dye Allergy Swelling Verified 01/10/23 20:38 Social History household members: none Smoking Status: Current every day smoker tobacco type: e-cigarettes alcohol intake: former substance use type: former substance user and opiates EXAM Physical Exam Const Vital Signs: 01/10/23 20:38 Temperature 98.1 F Temperature Source Temporal Pulse Rate 71 Respiratory Rate 18 Blood Pressure 130/75 H Blood Pressure Mean 93 Pulse Ox 100 Oxygen Delivery Method Room Air MDM MDM MDM Narrative Medical decision making narrative: HISTORY OF PRESENT ILLNESS: 37-year-old male here with concern for left leg infection. States he had an injury approximately 3 months ago. After his injury he suffered a leg infection which was treated with Bactrim. He states the last couple days had redness and symptoms similar to this prior event. REVIEW OF SYSTEMS: Pertinent positives: leg wound Pertinent negatives: fever, chills PHYSICAL EXAM: Nursing triage notes reviewed, Vital signs reviewed Constitutional: please see mdm Extremities: No edema, intact pulses in left lower extremity and dorsalis pedis and posterior tibial. Neuro: Intact sensation L1-S1 dermatomal distributions. Intact 5/5 strength in hip flexion (T12-L3). Knee extension (L2-L4). Ankle dorsiflexion (L4-L5). Ankle plantar flexion (S1). Great toe extension (L5). 2+ patellar and Achilles DTRs. Skin: erosion to posterior left calf, no crepitus or bullae noted. No fluctuance or induration noted. MEDICAL DECISION MAKING: Chief Complaint: Wound check External records reviewed: Seen in October 2022 for similar symptoms. Received Bactrim at that point to cover MRSA. Wound care was applied. Tetanus was updated. Factors affecting care: Bipolar disorder, tobacco abuse Social determinants of health: History of mental health disorder History obtained from others: none MDM Narrative: Patient was hemodynamically stable, afebrile, nontoxic-appearing. Exam without crepitus of bullae. no fluctuance or induration. I considered the following differential diagnosis: Cellulitis, necrotizing fasciitis, abscess Exam concerning for ongoing infection. No evidence of necrotizing fasciitis or abscess we will give Bactrim and have him follow with his primary care physician. The patient and/or family, caregivers express understanding. The patient and/or family, caregivers agrees with the plan. Shared decision making: I will have a discussion with the patient and or visitors regarding risk/benefits of further testing or admission. They will be made aware of of the risk/benefits inherent in this decision they will be given the opportunity to voice understanding. Total critical care time today provided was at least 0 minutes. This excludes separately billable procedures. Critical care time (if documented) is secondary to the patient having high probability of clinically significant/life threatening deterioration in the patient's condition which required my urgent intervention. Discharge Plan Triage Chief Complaint: Wound Check ED Provider: Joseph Ding Dx/Rx/DC Orders Clinical Impression: Cellulitis, Leg wound, left Instructions: Cellulitis Dc Prescriptions: New sulfamethoxazole-trimethoprim [Bactrim DS] 800-160 mg tablet 1 tab PO BID 10 Days Qty: 20 0RF No Action clonidine HCl 0.1 MG tablet 0.1 mg PO TID lamotrigine [Lamictal] 200 MG tablet 150 mg PO BID quetiapine [Seroquel] 300 MG tablet 400 mg PO QHS buprenorphine-naloxone [Suboxone] 1 EACH film 1 ea PO BID citalopram 20 MG tablet 30 mg PO DAILY doxycycline monohydrate 100 mg capsule 100 mg PO BID Qty: 20 0RF sulfamethoxazole-trimethoprim [sulfamethoxazole-trimethoprim] 800-160 mg tablet 1 tab PO BID Qty: 20 0RF Primary Care Provider: Cal Ibrahim Referrals: Cal Ibrahim MD [Primary Care Provider] - Wound,Center [Non-Staff] - Activity Restrictions/Additional Instructions: Thank you for trusting us with your care today! Please take Tylenol (2 pills, 650 mg), ibuprofen (2 pills, 400 mg) every 6 hours as needed for pain and fever control. Please take antibiotics until course complete. Please return if you cannot tolerate antibiotics by mouth. Please return to the emergency department if your symptoms change or worsen. Please follow with your primary care physician for further outpatient evaluation and management. Disposition Disposition: Home, Self Care
[2023-01-10] MEDS: Smz/Tmp Ds Tablet 1 TABLET PO (22:01)
== END 2023-01-10 22:07 | disposition home or self-care (01) ==
PROVIDERS: Emergency Provider Emergency Medicine; PCP Family Medicine; Visit Provider Emergency Medicine
DX: L03.116 Cellulitis of left lower limb (principal); F31.9 Bipolar disorder, unspecified; S81.802A Unspecified open wound, left lower leg, initial encounter; Z79.899 Other long term (current) drug therapy; F41.8 Other specified anxiety disorders; F17.290 Nicotine dependence, other tobacco product, uncomplicated; X58.XXXA Exposure to other specified factors, initial encounter
CPT/HCPCS: 99283

== ENCOUNTER 2023-01-13 12:07 | Emergency (ER) | payer MEDICAID, SELFPAY ==
[2023-01-13 12:08] VITALS: BP 116/69; PULSE 75; RESP 16; TEMP 36.8; O2SAT 99; BMI 15.5
[2023-01-13] MEDS: Metoclopramide 10 MG/2 ML Vial IV (12:42)
[2023-01-13] MEDS: 0.9% Normal Saline 1,000 ML 1000 ML IV (12:42)
[2023-01-13] MEDS: DiphenhydrAMINE 50 MG/ML Syringe 25 MG IV (12:42)
--- NOTE | 2023-01-13 12:47 | CT_ITS ---
STUDY: CT BRAIN WITHOUT CONTRAST REASON FOR EXAM: Male, 37 years old. headache RADIATION DOSAGE (If Supplied By Facility): CTDIvol = ( 44.99 ) mGy, DLP = ( 745.49 ) mGycm TECHNIQUE: Transaxial CT imaging of the brain was performed without administration of intravenous contrast material. Individualized dose optimization techniques were used for this CT. COMPARISON: 06/07/2017 FINDINGS: Normal soft tissue structures. Normal calvarium. Normal size ventricles and extra-axial spaces for the patient''s age. Normal white matter tracts of the cerebral hemispheres. Normal basal ganglia and thalami. Normal brainstem. Normal cerebellum. There is no intracranial hemorrhage. There are no findings of an acute ischemic infarction. Normal visualized paranasal sinuses. CT/Brain/Head without Contrast IMPRESSION: Normal unenhanced CT scan of the brain. Electronically Signed: Marko Koch MD at 13:18 EDT ,
--- NOTE | 2023-01-13 13:04 | EDS_ITS ---
<Statement entered by Diane aGllardo MD - 01/13/23 15:34> I have personally performed a face to face assessment of the patient and have reviewed the DEEPAK Note. Patient presents with headache since this morning. He states he does not normally get headaches. No recent head trauma. No fever or chills. Patient lying in a darkened room in no acute distress. Head and neck examination unremarkable. No meningismus. Heart is regular rate and rhythm. No murmurs appreciated. Lung sounds are clear. Abdomen is soft and nontender. Neuro exam reveals no focal deficits. CT scan of the head obtained and unremarkable. Lab work reveals no leukocytosis. After migraine cocktail patient does feel improved. He will be discharged home. HPI History of Present Illness Chief Complaint: Headache Narrative Narrative: Patient is a 37-year-old male with history of IV drug abuse who has been clean for 8 years on Suboxone, who smokes 1 pack/day presents to the emergency department with complaints of a headache that he woke up with this morning. Patient states he has never had a headache like this, he feels pressure to the top of his head. He also states to feel that the lights are making worse and he is nauseous. He states he does not normally get headaches, he has no history of migraine headaches. Secondary to the pain being so severe he is here for evaluation. He denies any weakness to his upper or lower extremities. Denies any difficulty performing activities. [facility] Medical History Anxiety and depression Bipolar 1 disorder Substance abuse Home Medications clonidine HCl 0.1 mg tablet 0.1 mg PO TID 05/23/17 [History Last Taken Unknown] buprenorphine 8 mg-naloxone 2 mg sublingual film (Suboxone) 1 ea PO BID 06/07/17 [History Last Taken Unknown] lamotrigine 200 mg tablet (Lamictal) 150 mg PO BID 06/07/17 [History Last Taken Unknown] quetiapine 300 mg tablet (Seroquel) 400 mg PO QHS 06/07/17 [History Last Taken Unknown] citalopram 20 mg tablet 30 mg PO DAILY 12/23/18 [History Last Taken Unknown] doxycycline monohydrate 100 mg capsule 100 mg PO BID #20 caps 02/06/22 [Rx Last Taken Unknown] Allergy/AdvReac Type Severity Reaction Status Date / Time red dye Allergy Swelling Verified 01/13/23 12:09 Social History household members: none Smoking Status: Current every day smoker tobacco type: e-cigarettes alcohol intake: former substance use type: former substance user and opiates ROS ROS ED ROS Narrative Constitutional: Negative for fever, chills, weight loss, weakness Eyes: Negative for vision loss, vision change, double vision ENT: Negative for any sore throat, ear pain, congestion Cardiovascular: Negative for any chest pain, tightness, palpitations Respiratory: Negative for any cough, sputum production, hemoptysis, dyspnea, dyspnea on exertion, orthopnea Gastrointestinal: Negative for any abdominal pain, vomiting, diarrhea, constipation, blood in stool, blood in vomit. Positive nausea : Negative for any urinary frequency, dysuria, retention, blood in urine Muscle skeletal: Negative for any muscle joint pain, stiffness, myalgias, arthralgias, neck pain, back pain Neurological: Negative for any syncope, numbness or tingling, dizziness. Positive for headache, photophobia Skin: Negative for any rashes, lumps, itching, abrasions, lacerations Psychiatric: Negative for any depression, anxiety, stress, suicidal ideation, homicidal ideation Hematologic: Negative for any easy bruising, excessive bruising, easy bleeding Allergies: Negative for any eczema, hives, rash EXAM Physical Exam Narrative Exam Narrative: Vital signs reviewed. HEET: Head normocephalic atraumatic, TMs clear bilaterally. Posterior pharynx is clear, moist mucous membranes. Nares clear bilaterally. Pupils are equal round reactive to light. Negative for any nystagmus. Neck: Supple with no lymphadenopathy or tenderness. No signs of meningismus, negative jolt sign. Cardiac: Regular rate and rhythm no murmurs gallops or rubs, equal peripheral pulses bilaterally. Respiratory: Lungs clear to auscultation bilaterally. No chest tenderness. Abdomen: Soft, nontender, nondistended. No abdominal bruit or pulsatile masses. No hepatosplenomegaly Extremities: No peripheral edema, no signs of gross trauma or deformity. Active full range of motion of all extremities. Neuro: Cranial nerves II through XII intact, no focal neurological deficits. NIH stroke scale 0 Skin: Clean dry and intact with no rash, purpura, petechiae, vesicles or pustules. Backs/flank: No CVA tenderness, no midline spinal tenderness, no deformity. Psych: Normal mood and affect. No SI, HI or acute psychosis. Const Vital Signs: 01/13/23 12:08 Temperature 98.2 F Temperature Source Temporal Pulse Rate 75 Respiratory Rate 16 Blood Pressure 116/69 Blood Pressure Mean 84 Pulse Ox 99 Oxygen Delivery Method Room Air [facility] Lab Data Labs: Laboratory Results - last 24 hr 01/13/23 12:53 WBC 6.7 RBC 4.41 L Hgb 12.3 L Hct 38.7 L MCV 87.8 MCH 27.9 MCHC 31.8 L RDW Std Deviation 42.4 RDW Coeff of Nathan 13.2 Plt Count 214 MPV 9.6 Immature Gran % (Auto) 0.400 Neut % (Auto) 73.0 H Lymph % (Auto) 14.8 L [place] % (Auto) 10.3 H Eos % (Auto) 0.9 Baso % (Auto) 0.6 Absolute Neuts (auto) 4.9 Absolute Lymphs (auto) 0.99 Nucleated RBC % 0 Sodium 136 Potassium 3.8 Chloride 104 Carbon Dioxide 28.0 Anion Gap 4 L BUN 8 Creatinine 0.86 Estim Creat Clear Calc 93.45 Est GFR (MDRD) Af Amer 130 Est GFR (MDRD) Non-Af 107 BUN/Creatinine Ratio 9.3 L Glucose 102 Calcium 9.1 Radiography Diagnostic Testing: Clinical Impression(s) from Imaging Studies Brain CT 01/13/23 12:47 IMPRESSION: Normal unenhanced CT scan of the brain. Electronically Signed: Marko Koch MD at 13:18 EDT , Treatment and Re-Evaluation :: Patient appears generally well, patient appears nontoxic, vital signs are stable. Patient presents to the emergency department with a severe headache that he has never had before. Secondary to the patient's history, patient will receive a CT scan. All radiologic examinations were read, reviewed by the emergency department attending. From these reads, a plan of care will be put in place. Patient will also received a migraine cocktail with fluids, Reglan, Benadryl, Toradol be ordered after a negative CT scan. Patient's reevaluation revealed that he does feel better after the migraine cocktail. Patient CT scan of the brain was negative for any acute process. At this time, patient like to be discharged home. He will continue take ibuprofen, Tylenol at home. He will follow-up with his PCP. He will continue on his Suboxone regimen. All questions answered, patient stable for discharge. Discharge Plan Triage Chief Complaint: Headache ED Midlevel Provider: Sebastián Crespo ED Provider: Diane Gallardo Dx/Rx/DC Orders Clinical Impression: Headache Instructions: Understanding Headache Pain Prescriptions: No Action clonidine HCl 0.1 MG tablet 0.1 mg PO TID lamotrigine [Lamictal] 200 MG tablet 150 mg PO BID quetiapine [Seroquel] 300 MG tablet 400 mg PO QHS buprenorphine-naloxone [Suboxone] 1 EACH film 1 ea PO BID citalopram 20 MG tablet 30 mg PO DAILY doxycycline monohydrate 100 mg capsule 100 mg PO BID Qty: 20 0RF Primary Care Provider: Cal Ibrahim Referrals: Cal Ibrahim MD [Primary Care Provider] - Activity Restrictions/Additional Instructions: Please maintain hydration. Disposition Disposition: Home, Self Care
[2023-01-13 13:05] LABS: Absolute Lymphocyte Count 0.99 X10^3/uL (0.83-4.51); Absolute Neutrophil Count 4.9 X10^3/uL (2.0-7.7); Basophil# 0.04 X10^3/uL; Basophil% 0.6 % (0-1); Eosinophil# 0.06 X10^3/uL; Eosinophils% 0.9 % (0-5); Hematocrit 38.7 % (40-54); Hemoglobin 12.3 g/dL (13.0-16.5); Lymphocyte # 0.99 X10^3/ul (0.83-4.51); Lymphocyte % 14.8 % (19-41); Mean Corp Hgb Conc 31.8 g/dL (32-36); Mean Corpuscular Hgb 27.9 pg (27.0-32.0); Mean Corpuscular Volume 87.8 fL (80-94); Mean Platelet Vol. 9.6 fl (6.2-12.0); Monocyte# 0.69 X10^3/uL; Monocyte% 10.3 % (0-10); NRBC Flagged by Analyzer 0 % (0-5); Neutrophil # 4.86 X10^3/uL (2.7-7.7); Platelet Count 214 K/mm3 (150-450); RBC Distribution Width CV 13.2 % (11.6-14.6); RBC Distribution Width SD 42.4 fl (35.1-43.9); Red Blood Count 4.41 M/mm3 (4.6-6.2); White Blood Count 6.7 K/mm3 (4.4-11.0)
[2023-01-13 13:13] LABS: Anion Gap 4 (5-15); BUN 8 mg/dL (7-18); BUN/Creat Ratio 9.3 RATIO (10-20); Calcium,Total 9.1 mg/dL (8.5-10.1); Chloride 104 mmol/L (98-107); Creatinine, Serum 0.86 mg/dL (0.70-1.30); EST Glomerular Filtration Rate 107 mL/min (>60); Est Glom Filt Rate - Afr Amer 130 mL/min (>60); Estimated Creatinine Clearance 93.45 ml/min; Glucose 102 mg/dL (74-106); Potassium 3.8 mmol/L (3.5-5.1); Sodium Level 136 mmol/L (136-145)
[2023-01-13] MEDS: Ketorolac 15 MG/ML Vial IV (13:49)
[2023-01-13 14:00] VITALS: BP 134/78; PULSE 64; RESP 14; TEMP 36.6; O2SAT 99
== END 2023-01-13 14:02 | disposition home or self-care (01) ==
PROVIDERS: Nurse Practitioner; Emergency Provider Emergency Medicine; PCP Family Medicine; Visit Provider Emergency Medicine
DX: R51.9 Headache, unspecified (principal); F31.9 Bipolar disorder, unspecified; F41.8 Other specified anxiety disorders; Z79.899 Other long term (current) drug therapy; F17.290 Nicotine dependence, other tobacco product, uncomplicated
CPT/HCPCS: 70450; 80048; 85025; 96361; 96374; 96375; 99283; J7030; A4216

== ENCOUNTER 2023-03-03 23:05 | Emergency (ER) | payer MEDICAID, SELFPAY ==
[2023-03-03 23:06] VITALS: BP 136/95; PULSE 108; RESP 16; TEMP 36.5; BMI 16.7
[2023-03-03 23:08] VITALS: BP 136/95; PULSE 108; RESP 16; TEMP 36.5
--- NOTE | 2023-03-04 00:11 | EX.ED.DYSGE1 ---
HPI History of Present Illness Chief Complaint: Headache Informant: patient Narrative Narrative: Patient is a 37-year-old male with history of ADHD bipolar disorder and previous drug abuse currently on Suboxone. He was seen at the end of December for similar complaint and had negative work-up. Patient reports that he had 1 to 2 days of sinus congestion head pressure and fullness with headache. He states that he is done [id number] medications with no real symptom improvement that he also has dental pain associated with this and is concerned that he may have some type of infectious process causing his symptoms and therefore comes in for evaluation [facility] Medical History Anxiety and depression Bipolar 1 disorder Substance abuse Home Medications clonidine HCl 0.1 mg tablet 0.1 mg PO TID 05/23/17 [History Last Taken Unknown] buprenorphine 8 mg-naloxone 2 mg sublingual film (Suboxone) 1 ea PO BID 06/07/17 [History Last Taken Unknown] lamotrigine 200 mg tablet (Lamictal) 150 mg PO BID 06/07/17 [History Last Taken Unknown] quetiapine 300 mg tablet (Seroquel) 400 mg PO QHS 06/07/17 [History Last Taken Unknown] citalopram 20 mg tablet 30 mg PO DAILY 12/23/18 [History Last Taken Unknown] doxycycline monohydrate 100 mg capsule 100 mg PO BID #20 caps 02/06/22 [Rx Last Taken Unknown] acetaminophen 500 mg capsule (Mapap (acetaminophen)) 1,000 mg (2 x 500 mg) PO TID PRN PRN fever or pain #60 caps 03/04/23 [Rx Last Taken Unknown] amoxicillin 875 mg-potassium clavulanate 125 mg tablet 1 tab PO BID 7 days #14 tabs 03/04/23 [Rx Last Taken Unknown] azelastine 137 mcg (0.1 %) nasal spray aerosol 2 spray intranasal BID #30 mL 03/04/23 [Rx Last Taken Unknown] prednisone 20 mg tablet 40 mg (2 x 20 mg) PO DAILY 7 days #14 tabs 03/04/23 [Rx Last Taken Unknown] Allergy/AdvReac Type Severity Reaction Status Date / Time red dye Allergy Swelling Verified 03/03/23 23:05 Social History household members: none Smoking Status: Current every day smoker tobacco type: e-cigarettes alcohol intake: former substance use type: former substance user and opiates ROS ROS ED Constitutional Constitutional ED: Denies chills or fever(s) Eyes Eyes: Reports other Details: Positive photophobia ENT ENT ED: Reports rhinorrhea and sore throat Cardiovascular Cardiovascular: Denies chest pain Respiratory/Chest Respiratory/Chest: Denies cough or dyspnea Gastrointestinal Gastrointestinal: Reports nausea; Denies abdominal pain, diarrhea or vomiting Genitourinary Genitourinary ED: Denies dysuria Musculoskeletal Musculoskeletal: Denies myalgias or neck pain Integumentary Denies rash Neurologic Neurologic: Reports headache(s) Hematologic/Lymphatic Hematologic/Lymphatic: Denies easy bleeding or easy bruising EXAM Physical Exam Const Vital Signs: 03/03/23 23:06 03/03/23 23:08 Temperature 97.7 F L 97.7 F L Temperature Source Temporal Temporal Pulse Rate 108 H 108 H Respiratory Rate 16 16 Blood Pressure 136/95 H 136/95 H Blood Pressure Mean 108 108 Positive well nourished and well developed General Appearance ED: well developed HEENT HEENT Narrative: Nasal mucosa is hyperemic and boggy with enlarged inferior nasal turbinates Bilateral TMs are retracted but show no secondary changes to suggest infection Patient has multiple dental caries present without obvious dental abscess. No oral lesions or airway edema. No signs of secondary infection posterior pharynx. Eyes PERRL and EOMs intact bilaterally General Eye ED: Negative for scleral icterus Neck supple Neck Narrative: No nuchal rigidity or meningeal signs noted Resp normal respiratory effort and clear to auscultation bilaterally Cardio regular rate and regular rhythm Extremity normal to inspection Neuro oriented x3, CN's II-XII intact bilaterally and no sensory deficits noted Neuro Narrative: Cranial nerves II through XII are grossly intact there are no focal neurologic deficits. No pronator drift no dysmetria no truncal ataxia. NIH stroke scale score of 0. Sensorium / Orientation: alert Motor Exam: strength 5/5 throughout Psych Psych Narrative: Patient has a nervous/anxious affect Skin no rashes or lesions noted MDM MDM MDM Narrative Medical decision making narrative: Patient was seen roughly 6 weeks ago for similar complaint and at that time had blood work and head CT which revealed no acute findings. History and exam today is most consistent with sinus headache with his nasal congestion sore throat and ear pressure. I discussed with patient providing IV cocktail for migraine headache as well as Decadron for improvement of sinus pressure. He states because of his history of previous IV drug abuse he does not want that performed. Therefore initially ordered combination of oral and IM medication. I do not feel there is a need for repeat CT scan or laboratory studies based on his recent negative work-up and physical exam today. The patient refused IM injections as well and therefore he will be given oral medication. He does have concern for developing sinusitis as well as underlying dental infection based on his multiple dental caries and therefore I will initiate Augmentin and also provide steroid secondary to his sinus pressure. However I have low concern for meningitis or underlying brain bleed such as epidural or subdural hematoma and he has no physical findings to suggest ANUG or Ludewig's angina and therefore is otherwise safe for discharge. History & Record Review Discussion w/independent historian: Patient Discharge Plan Triage Chief Complaint: Headache ED Provider: Garfield Milian Dx/Rx/DC Orders Clinical Impression: Dental caries, Cephalgia, Sinusitis Instructions: Understanding Tooth Decay, ED Sinus Headache Prescriptions: New prednisone 20 mg tablet 40 mg PO DAILY 7 Days Qty: 14 0RF azelastine 137 mcg (0.1 %) aerosol,spray 2 spray intranasal BID Qty: 30 0RF Rx Instructions: administer into each nostril amoxicillin-pot clavulanate 875-125 mg tablet 1 tab PO BID 7 Days Qty: 14 0RF acetaminophen [Mapap (acetaminophen)] 500 mg capsule 1,000 mg PO TID PRN PRN (Reason: fever or pain) Qty: 60 0RF No Action clonidine HCl 0.1 MG tablet 0.1 mg PO TID lamotrigine [Lamictal] 200 MG tablet 150 mg PO BID quetiapine [Seroquel] 300 MG tablet 400 mg PO QHS buprenorphine-naloxone [Suboxone] 1 EACH film 1 ea PO BID citalopram 20 MG tablet 30 mg PO DAILY doxycycline monohydrate 100 mg capsule 100 mg PO BID Qty: 20 0RF Primary Care Provider: Cal Ibrahim Referrals: Cal Ibrahim MD [Primary Care Provider] - Activity Restrictions/Additional Instructions: Your physical exam indicates multiple reasons for your headache. He has sinus inflammation and infection which could lead to dizziness and headache and therefore take the steroid and Augmentin to help reduce the symptoms. He also have multiple dental caries and could have the start of underlying dental infection which the Augmentin/antibiotic will cover as well. If you have any further concerns or worsening symptoms please return for repeat evaluation Disposition Disposition: Home, Self Care Discharge Date/Time: 03/04/23 00:47
[2023-03-04] MEDS: Amox/Clavulanate 875 MG Tablet PO (00:32)
[2023-03-04] MEDS: Metoclopramide 10 MG/10 ML UDC PO (00:32)
[2023-03-04] MEDS: dexAMETHasone 10 MG/ML Vial PO.IVFORM (00:32)
[2023-03-04] MEDS: Ibuprofen 400 MG Tablet 800 MG PO (00:43)
== END 2023-03-04 00:47 | disposition home or self-care (01) ==
LOC: ED 03-04 00:24
PROVIDERS: Emergency Provider Emergency Medicine; PCP Family Medicine; Visit Provider Emergency Medicine
DX: K02.9 Dental caries, unspecified (principal); F31.9 Bipolar disorder, unspecified; R51.9 Headache, unspecified; F17.210 Nicotine dependence, cigarettes, uncomplicated; R09.81 Nasal congestion; F41.9 Anxiety disorder, unspecified
CPT/HCPCS: 99284

== ENCOUNTER 2023-03-20 16:50 | Emergency (ER) | payer MEDICAID, SELFPAY ==
[2023-03-20 16:51] VITALS: BP 113/69; PULSE 81; RESP 16; TEMP 36.1; O2SAT 96
--- NOTE | 2023-03-20 17:15 | EX.ED.GENINJ ---
HPI <VANCE Smiley - Last Filed: 03/20/23 17:34> History of Present Illness Chief Complaint: Chest Other Narrative Narrative: Patient presenting today due to pain to his left lateral rib cage that he has had for the past few days. He reports that he thinks that he pulled a muscle because he was lifting a lot of pallets prior to the pain starting. Then today, he aspirated on some of the water he was drinking and was coughing a lot and aggravated the pain. He reports, I think I just hyped myself up and got nervous but now that I think about it I am okay, I think I just pulled a muscle, so I won't be wasting any more of your guys' time. He denies any chest pain or shortness of breath. [facility] <VANCE Smiley - Last Filed: 03/20/23 17:34> [facility] Medical History Anxiety and depression Bipolar 1 disorder Substance abuse Home Medications clonidine HCl 0.1 mg tablet 0.1 mg PO TID 05/23/17 [History Last Taken Unknown] buprenorphine 8 mg-naloxone 2 mg sublingual film (Suboxone) 1 ea PO BID 06/07/17 [History Last Taken Unknown] lamotrigine 200 mg tablet (Lamictal) 150 mg PO BID 06/07/17 [History Last Taken Unknown] quetiapine 300 mg tablet (Seroquel) 400 mg PO QHS 06/07/17 [History Last Taken Unknown] citalopram 20 mg tablet 30 mg PO DAILY 12/23/18 [History Last Taken Unknown] doxycycline monohydrate 100 mg capsule 100 mg PO BID #20 caps 02/06/22 [Rx Last Taken Unknown] acetaminophen 500 mg capsule (Mapap (acetaminophen)) 1,000 mg (2 x 500 mg) PO TID PRN PRN fever or pain #60 caps 03/04/23 [Rx Last Taken Unknown] amoxicillin 875 mg-potassium clavulanate 125 mg tablet 1 tab PO BID 7 days #14 tabs 03/04/23 [Rx Last Taken Unknown] azelastine 137 mcg (0.1 %) nasal spray aerosol 2 spray intranasal BID #30 mL 03/04/23 [Rx Last Taken Unknown] prednisone 20 mg tablet 40 mg (2 x 20 mg) PO DAILY 7 days #14 tabs 03/04/23 [Rx Last Taken Unknown] Allergy/AdvReac Type Severity Reaction Status Date / Time red dye Allergy Swelling Verified 03/20/23 16:51 Social History household members: none Smoking Status: Current every day smoker tobacco type: e-cigarettes alcohol intake: former substance use type: former substance user and opiates ROS <VANCE Smiley - Last Filed: 03/20/23 17:34> ROS ED Constitutional Constitutional ED: Denies chills or fever(s) Cardiovascular Cardiovascular: Denies chest pain or palpitations Respiratory/Chest Respiratory/Chest: Denies cough, dyspnea or dyspnea on exertion Gastrointestinal Gastrointestinal: Denies abdominal pain, nausea or vomiting Musculoskeletal Musculoskeletal: Denies arthralgias or myalgias Integumentary Denies rash Neurologic Neurologic: Denies weakness EXAM <VANCE Smiley - Last Filed: 03/20/23 17:34> Physical Exam Const Vital Signs: 03/20/23 16:51 03/20/23 17:31 Temperature 96.9 F L 97.6 F L Temperature Source Temporal Pulse Rate 81 64 Respiratory Rate 16 16 Blood Pressure 113/69 124/76 H Blood Pressure Mean 83 Pulse Ox 96 99 Oxygen Delivery Method Room Air Positive well nourished, well developed and no apparent distress General Appearance ED: well developed HEENT Reports normocephalic and head/scalp atraumatic Mouth ED: Yes moist mucous membranes normal Eyes PERRL and EOMs intact bilaterally Neck full ROM and supple Chest Wall inspection of chest normal and palpation of chest normal Chest Narrative: No pain to palpation to the rib cage bilaterally. Resp normal respiratory effort and clear to auscultation bilaterally Cardio regular rate and regular rhythm GI soft to palpation, non-tender, non-distended and no masses Back/Spine normal ROM and normal to inspection Extremity normal to inspection and full ROM Neuro oriented x3, CN's II-XII intact bilaterally, moves all extremities, no focal motor deficits and no sensory deficits noted Sensorium / Orientation: awake and alert Psych mental status grossly normal and thought process normal Skin no rashes or lesions noted and no wounds <Dr. Rohith Ballard MD - Last Filed: 03/20/23 23:50> Physical Exam Const Vital Signs: 03/20/23 16:51 03/20/23 17:31 Temperature 96.9 F L 97.6 F L Temperature Source Temporal Pulse Rate 81 64 Respiratory Rate 16 16 Blood Pressure 113/69 124/76 H Blood Pressure Mean 83 Pulse Ox 96 99 Oxygen Delivery Method Room Air [facility] <VANCE Smiley - Last Filed: 03/20/23 17:34> [facility] Narrative Medical decision making narrative: Patient presenting today with concerns that he pulled a muscle to the left lateral rib cage. Pain started a few days ago after lifting heavy pallets. It was then exacerbated today when he was coughing after aspirating on a little bit of his water he was drinking. He is well-appearing and in no acute distress, vitals are unremarkable, he is not hypoxic. The attending did offer to obtain an x-ray of his chest but patient did not feel that this was necessary. I agree that patient symptoms are likely due to muscular strain. He will be discharged home in stable condition and is comfortable with plan. He can alternate Tylenol and ibuprofen for his pain as needed. He is to follow-up with PCP. <Dr. Rohith Ballard MD - Last Filed: 03/20/23 23:50> [facility] Treatment and Re-Evaluation Narrative: I have personally performed a face to face assessment of the patient and have reviewed the DEEPAK Note. I performed a substantive portion of the visit including all aspects of the following. My em findings include: History: Patient complains of left-sided pain. He states he had pushed by some pallets the other day and this caused a strain in the left lower chest wall. It was sore. Today he started coughing after accidentally swallowing some liquid down the wrong pipe. This caused increased pain. He states is a lot better now that he calm down. He wished he did not come in now. He is not short of breath. Is a little sore if he presses on it but its been that way for days. He has no recent travel surgery immobilization personal or family history of DVT or PE. No leg pain or swelling. No history of pneumothorax. Exam: She is laying back in the bed looks comfortable. Breathing is easy and unlabored. No subcu air. Oropharynx is normal. Neck is normal. Heart is regular. No murmur or muffled tones. Lungs are clear bilaterally. No pain with a deep breath. Saturations are normal. Medical Decision Making: Jack options with the patient. I discussed getting a chest x-ray. But he states he feels better now and his oxygen level is normal and he does not want 1. I explained that that is a low likelihood that he has a pneumothorax but we cannot rule this out without x-ray. He states he will come back if he has any issues. I did percussion on the chest to and there is no difference side to side. Clinically does not appear to have a pneumothorax. He has no risk factors for PE and is PERC negative also. Discharge Plan Triage Chief Complaint: Chest Other Other Complaint: Flank Pain ED Midlevel Provider: Laurie Aguirre ED Provider: Rohith Ballard Dx/Rx/DC Orders Clinical Impression: Muscle strain Instructions: Self-Care for Strains and Sprains Prescriptions: No Action clonidine HCl 0.1 MG tablet 0.1 mg PO TID lamotrigine [Lamictal] 200 MG tablet 150 mg PO BID quetiapine [Seroquel] 300 MG tablet 400 mg PO QHS buprenorphine-naloxone [Suboxone] 1 EACH film 1 ea PO BID citalopram 20 MG tablet 30 mg PO DAILY doxycycline monohydrate 100 mg capsule 100 mg PO BID Qty: 20 0RF prednisone 20 mg tablet 40 mg PO DAILY 7 Days Qty: 14 0RF azelastine 137 mcg (0.1 %) aerosol,spray 2 spray intranasal BID Qty: 30 0RF Rx Instructions: administer into each nostril amoxicillin-pot clavulanate 875-125 mg tablet 1 tab PO BID 7 Days Qty: 14 0RF acetaminophen [Mapap (acetaminophen)] 500 mg capsule 1,000 mg PO TID PRN PRN (Reason: fever or pain) Qty: 60 0RF Primary Care Provider: Cal Ibrahim Referrals: Cal Ibrahim MD [Primary Care Provider] - 5-7 Days Activity Restrictions/Additional Instructions: Follow-up with your PCP and return for any worsening of your symptoms. Disposition Disposition: Home, Self Care Discharge Date/Time: 03/20/23 17:42
[2023-03-20 17:31] VITALS: BP 124/76; PULSE 64; RESP 16; TEMP 36.4; O2SAT 99
== END 2023-03-20 17:42 | disposition home or self-care (01) ==
LOC: ED 17:41
PROVIDERS: Emergency Provider Emergency Medicine; PCP Family Medicine; Visit Provider Emergency Medicine
DX: R07.81 Pleurodynia (principal); F31.9 Bipolar disorder, unspecified; F41.8 Other specified anxiety disorders; Z79.899 Other long term (current) drug therapy; F17.290 Nicotine dependence, other tobacco product, uncomplicated
CPT/HCPCS: 99283

== ENCOUNTER 2023-03-30 10:55 | Emergency (ER) | payer MEDICAID, SELFPAY ==
[2023-03-30 10:56] VITALS: BP 147/94; PULSE 91; RESP 14; TEMP 36.6; O2SAT 100; BMI 17.6
--- NOTE | 2023-03-30 11:26 | ED.RN ---
PT LEFT AT THIS TIME STATES HE WILL RETURN LATER- NEEDS TO [facility] AT 1300. PT LEFT IN NO DISTRESS
== END 2023-03-30 11:26 | disposition left against medical advice (07) ==
LOC: ED 11:30
PROVIDERS: PCP Family Medicine
DX: K08.89 Other specified disorders of teeth and supporting structures (principal)

== ENCOUNTER 2023-04-13 18:09 | Emergency (ER) | payer MEDICAID, SELFPAY ==
[2023-04-13 18:09] VITALS: BP 123/80; PULSE 71; RESP 16; TEMP 36.3; O2SAT 100; BMI 16.7
--- NOTE | 2023-04-13 18:52 | ED.RN ---
PT STATES THAT HE SEES WE ARE BUSY AND DOESNT WANT TO TAKE UP A ROOM FROM SOMEONE ELSE. [facility] IS EMPTY RIGHT NOW SO MY IS GOING TO TAKE ME THERE LWBS
== END 2023-04-13 18:50 | disposition left against medical advice (07) ==
LOC: ED 19:08
PROVIDERS: PCP Family Medicine
DX: K08.89 Other specified disorders of teeth and supporting structures (principal)

== ENCOUNTER 2023-04-22 20:06 | Emergency (ER) | payer MEDICAID, SELFPAY ==
[2023-04-22 20:08] VITALS: BP 146/76; PULSE 74; RESP 16; TEMP 36.2; O2SAT 100; BMI 17.3
--- NOTE | 2023-04-22 20:19 | ED.VIS.DENTA ---
HPI History of Present Illness Chief Complaint: Headache Detail of Chief Complaint: Dental pain Informant: patient Onset/Context/Timing Onset: Days Narrative Narrative: Patient presents with a 3-day history of dental pain. He states he has bad teeth and needs to have a molar pulled. 3 days ago he noted a swelling on the roof of his mouth with increased dental pain. That area seems to have subsided but he now has increased pressure over his his sinuses. He is concerned that he needs an antibiotic. [facility] Medical History Anxiety and depression Bipolar 1 disorder Substance abuse Home Medications clonidine HCl 0.1 mg tablet 0.1 mg PO TID 05/23/17 [History Last Taken Unknown] buprenorphine 8 mg-naloxone 2 mg sublingual film (Suboxone) 1 ea PO BID 06/07/17 [History Last Taken Unknown] lamotrigine 200 mg tablet (Lamictal) 150 mg PO BID 06/07/17 [History Last Taken Unknown] quetiapine 300 mg tablet (Seroquel) 400 mg PO QHS 06/07/17 [History Last Taken Unknown] citalopram 20 mg tablet 30 mg PO DAILY 12/23/18 [History Last Taken Unknown] acetaminophen 500 mg capsule (Mapap (acetaminophen)) 1,000 mg (2 x 500 mg) PO TID PRN PRN fever or pain #60 caps 03/04/23 [Rx Last Taken Unknown] amoxicillin 875 mg tablet 875 mg PO BID #20 tabs 04/22/23 [Rx Last Taken Unknown] Allergy/AdvReac Type Severity Reaction Status Date / Time red dye Allergy Swelling Verified 04/22/23 20:07 Social History household members: none Smoking Status: Current every day smoker tobacco type: e-cigarettes alcohol intake: former substance use type: former substance user and opiates ROS ROS ED Constitutional Constitutional ED: Denies chills or fever(s) Eyes Eyes: Denies discharge from eye(s) ENT ENT ED: Reports other Details: Dental pain and sinus pressure ; Denies discharge from eye(s), rhinorrhea or sore throat Cardiovascular Cardiovascular: Denies chest pain Respiratory/Chest Respiratory/Chest: Denies dyspnea Gastrointestinal Gastrointestinal: Denies abdominal pain Musculoskeletal Musculoskeletal: Denies back pain or extremity pain Integumentary Denies Abrasions or rash Neurologic Neurologic: Reports headache(s); Denies weakness Allergic/Immunologic Allergic/Immunologic ED: Denies lip swelling or urticaria EXAM Physical Exam Const Vital Signs: 04/22/23 20:08 Temperature 97.1 F L Temperature Source Temporal Pulse Rate 74 Respiratory Rate 16 Blood Pressure 146/76 H Blood Pressure Mean 99 Pulse Ox 100 Positive well nourished and well developed General Appearance ED: well developed HEENT HEENT Narrative: No facial edema or erythema present. Intraoral examination reveals multiple dental caries with decay down to gumline. Slight increased gum swelling on the left maxillary region. No trismus. Posterior pharynx exam unremarkable. Eyes EOMs intact bilaterally Neck no lymphadenopathy Chest Wall inspection of chest normal and palpation of chest normal Resp normal respiratory effort Cardio regular rate, regular rhythm and no murmurs GI non-tender Palpation: soft Extremity normal to inspection Neuro oriented x3 and moves all extremities Motor Exam: strength 5/5 throughout Psych mental status grossly normal MDM MDM MDM Narrative Medical decision making narrative: Patient states he has done well with amoxicillin in the past. I will write him a course of amoxicillin and have him follow with his dentist. Discharge Plan Triage Chief Complaint: Headache Other Complaint: Dental ED Provider: Diane Gallardo Dx/Rx/DC Orders Clinical Impression: Dental abscess Instructions: ED Dental Abscess Prescriptions: New amoxicillin 875 mg tablet 875 mg PO BID Qty: 20 0RF No Action clonidine HCl 0.1 MG tablet 0.1 mg PO TID lamotrigine [Lamictal] 200 MG tablet 150 mg PO BID quetiapine [Seroquel] 300 MG tablet 400 mg PO QHS buprenorphine-naloxone [Suboxone] 1 EACH film 1 ea PO BID citalopram 20 MG tablet 30 mg PO DAILY acetaminophen [Mapap (acetaminophen)] 500 mg capsule 1,000 mg PO TID PRN PRN (Reason: fever or pain) Qty: 60 0RF Primary Care Provider: Cal Ibrahim Referrals: Cal Ibrahim MD [Primary Care Provider] - Activity Restrictions/Additional Instructions: Follow-up with your dentist as able. Disposition Disposition: Home, Self Care Discharge Date/Time: 04/22/23 20:28
[2023-04-22] MEDS: AMOXICILLIN 500 MG CAPSULE PO (20:23)
--- NOTE | 2023-04-22 20:27 | ED.RN ---
pt dropped first amoxicillin on floor.
== END 2023-04-22 20:28 | disposition home or self-care (01) ==
LOC: ED 20:23
PROVIDERS: Emergency Provider Emergency Medicine; PCP Family Medicine; Visit Provider Emergency Medicine
DX: K04.7 Periapical abscess without sinus (principal); F31.9 Bipolar disorder, unspecified; Z79.899 Other long term (current) drug therapy; F41.8 Other specified anxiety disorders; F17.290 Nicotine dependence, other tobacco product, uncomplicated
CPT/HCPCS: 99283

== ENCOUNTER 2023-05-14 21:49 | Emergency (ER) | payer MEDICAID, SELFPAY ==
[2023-05-14 21:50] VITALS: BP 137/59; PULSE 81; RESP 16; TEMP 36.6; O2SAT 99; BMI 16.7
--- NOTE | 2023-05-14 22:30 | EDS_ITS ---
HPI History of Present Illness Chief Complaint: Wound Informant: patient Onset/Context/Timing Onset: Month(s) Narrative Narrative: Patient presents due to concern for left calf injury infection. Patient states about 6 months ago his leg went through basilio and injured the back of his left leg. It has slowly been healing but he has noted recent drainage and foul smell. He is currently working at a job in [place] where he does not have access to running water. Has been trying to clean it as best he can but did note odor and drainage. He denies fever or chills. Has been able to ambulate without difficulty. He does clean the wound and cover it before going to work every day. [facility] Medical History Anxiety and depression Bipolar 1 disorder Substance abuse Home Medications clonidine HCl 0.1 mg tablet 0.1 mg PO TID 05/23/17 [History Last Taken Unknown] buprenorphine 8 mg-naloxone 2 mg sublingual film (Suboxone) 1 ea PO BID 06/07/17 [History Last Taken Unknown] lamotrigine 200 mg tablet (Lamictal) 150 mg PO BID 06/07/17 [History Last Taken Unknown] quetiapine 300 mg tablet (Seroquel) 400 mg PO QHS 06/07/17 [History Last Taken Unknown] citalopram 20 mg tablet 30 mg PO DAILY 12/23/18 [History Last Taken Unknown] acetaminophen 500 mg capsule (Mapap (acetaminophen)) 1,000 mg (2 x 500 mg) PO TID PRN PRN fever or pain #60 caps 03/04/23 [Rx Last Taken Unknown] amoxicillin 875 mg tablet 875 mg PO BID #20 tabs 04/22/23 [Rx Last Taken Unknown] cephalexin 500 mg capsule 500 mg PO Q6 #40 CAPSULES 05/14/23 [Rx Last Taken Unknown] sulfamethoxazole 800 mg-trimethoprim 160 mg tablet (Bactrim DS) 1 tab PO BID #20 tabs 05/14/23 [Rx Last Taken Unknown] Allergy/AdvReac Type Severity Reaction Status Date / Time red dye Allergy Swelling Verified 05/14/23 21:50 Social History household members: none Smoking Status: Current every day smoker tobacco type: e-cigarettes alcohol intake: former substance use type: former substance user and opiates ROS ROS ED Constitutional Constitutional ED: Denies chills or fever(s) Eyes Eyes: Denies change in vision ENT ENT ED: Denies rhinorrhea or sore throat Cardiovascular Cardiovascular: Denies chest pain or palpitations Respiratory/Chest Respiratory/Chest: Denies cough or dyspnea Gastrointestinal Gastrointestinal: Denies abdominal pain Integumentary Reports other Details: Wounds posterior left leg. EXAM Physical Exam Narrative Exam Narrative: Patient nontoxic-appearing. Const Vital Signs: 05/14/23 21:50 Temperature 97.8 F Temperature Source Temporal Pulse Rate 81 Respiratory Rate 16 Blood Pressure 137/59 H Blood Pressure Mean 85 Pulse Ox 99 Positive well nourished and well developed General Appearance ED: well developed HEENT Reports moist mucous membranes Eyes EOMs intact bilaterally Chest Wall inspection of chest normal and palpation of chest normal Resp normal respiratory effort and clear to auscultation bilaterally Cardio regular rate and regular rhythm GI non-tender Palpation: soft Extremity Extremity Narrative: 2 irregular shaped wounds to the posterior aspect of the left calf. Largest measures 5 x 8 cm with eschar noted over portion of the wound. No drainage at this time. No surrounding cellulitis. There is a smaller 1.5 x 1 cm wound just inferior to this. No drainage or evidence of infection to the site. Neuro oriented x3 and no sensory deficits noted Motor Exam: strength 5/5 throughout Psych mental status grossly normal MDM MDM MDM Narrative Medical decision making narrative: Patient will be treated with Bactrim and Keflex, first dose is given here. Prescription be sent to the pharmacy for him. He states that he is going home to shower and he will cleanse and dress the wound at that time. I will give him follow-up information at the wound care center if its not healing appropriately. Discharge Plan Triage Chief Complaint: Wound ED Provider: Diane Gallardo Dx/Rx/DC Orders Clinical Impression: Leg wound, left Instructions: ED Wound Care Prescriptions: New sulfamethoxazole-trimethoprim [Bactrim DS] 800-160 mg tablet 1 tab PO BID Qty: 20 0RF cephalexin 500 mg capsule 500 mg PO Q6 Qty: 40 0RF No Action clonidine HCl 0.1 MG tablet 0.1 mg PO TID lamotrigine [Lamictal] 200 MG tablet 150 mg PO BID quetiapine [Seroquel] 300 MG tablet 400 mg PO QHS buprenorphine-naloxone [Suboxone] 1 EACH film 1 ea PO BID citalopram 20 MG tablet 30 mg PO DAILY acetaminophen [Mapap (acetaminophen)] 500 mg capsule 1,000 mg PO TID PRN PRN (Reason: fever or pain) Qty: 60 0RF amoxicillin 875 mg tablet 875 mg PO BID Qty: 20 0RF Primary Care Provider: Cal Ibrahim Referrals: Cal Ibrahim MD [Primary Care Provider] - 1-2 Weeks Wound,Center [Non-Staff] - As Needed Disposition Disposition: Home, Self Care Discharge Date/Time: 05/14/23 22:47
[2023-05-14] MEDS: Smz/Tmp Ds Tablet 1 TABLET PO (22:41)
[2023-05-14] MEDS: Cephalexin 250 MG Capsule 500 MG PO (22:41)
== END 2023-05-14 22:47 | disposition home or self-care (01) ==
LOC: ED 22:40
PROVIDERS: Emergency Provider Emergency Medicine; PCP Family Medicine; Visit Provider Emergency Medicine
DX: S81.802A Unspecified open wound, left lower leg, initial encounter (principal); F31.9 Bipolar disorder, unspecified; X58.XXXA Exposure to other specified factors, initial encounter; F41.8 Other specified anxiety disorders; Z79.899 Other long term (current) drug therapy; F17.290 Nicotine dependence, other tobacco product, uncomplicated
CPT/HCPCS: 99283

== ENCOUNTER 2024-02-29 20:56 | Emergency (ER) | payer MEDICAID, SELFPAY ==
[2024-02-29 20:56] VITALS: BP 141/96; PULSE 110; RESP 16; TEMP 36.8; O2SAT 98; BMI 16.5
--- NOTE | 2024-02-29 22:17 | EDS_ITS ---
HPI History of Present Illness Chief Complaint: Dental Informant: patient Narrative Narrative: Patient is a 38-year-old male with past ministry of bipolar disorder and ADHD as well as previous drug abuse. He states he has been on Suboxone for multiple years secondary to this. He reports that he believes that Suboxone has led to tooth decay and secondary to the dental breakdown he gets recurrent infections. He states that over the last few days he has noticed some pain and swelling along his gums concerning for early dental infection and he has concern he may need antibiotics and secondary to this comes in for evaluation [facility] Medical History Substance abuse Anxiety and depression Bipolar 1 disorder Home Medications ?Medication ?Instructions ?Recorded ?Last Taken ?Type clonidine HCl 0.1 mg tablet 0.1 mg PO TID 05/23/17 Unknown History buprenorphine 8 mg-naloxone 2 mg 1 ea PO BID 06/07/17 Unknown History sublingual film (Suboxone) lamotrigine 200 mg tablet 150 mg PO BID 06/07/17 Unknown History (Lamictal) quetiapine 300 mg tablet (Seroquel) 400 mg PO QHS 06/07/17 Unknown History citalopram 20 mg tablet 30 mg PO DAILY 12/23/18 Unknown History acetaminophen 500 mg capsule 1,000 mg (2 x 500 mg) PO TID PRN 03/04/23 Unknown Rx (Mapap (acetaminophen)) PRN fever or pain #60 caps amoxicillin 875 mg tablet 875 mg PO BID #20 tabs 04/22/23 Unknown Rx cephalexin 500 mg capsule 500 mg PO Q6 #40 CAPSULES 05/14/23 Unknown Rx sulfamethoxazole 800 1 tab PO BID #20 tabs 05/14/23 Unknown Rx mg-trimethoprim 160 mg tablet (Bactrim DS) clindamycin HCl 300 mg capsule 300 mg PO 4X/DAY 10 days #40 02/29/24 Unknown Rx (Cleocin HCl) CAPSULES Allergy/AdvReac Type Severity Reaction Status Date / Time red dye Allergy Swelling Verified 02/29/24 20:58 Social History household members: none Smoking Status: Current every day smoker tobacco type: cigarettes alcohol intake: former substance use type: former substance user and opiates ROS ROS ED Constitutional Constitutional ED: Denies chills or fever(s) ENT ENT ED: Reports other Details: Positive dental pain Cardiovascular Cardiovascular: Denies chest pain Respiratory/Chest Respiratory/Chest: Denies cough or dyspnea Gastrointestinal Gastrointestinal: Denies abdominal pain, diarrhea, nausea or vomiting Genitourinary Genitourinary ED: Denies dysuria Musculoskeletal Musculoskeletal: Denies myalgias Integumentary Denies rash Neurologic Neurologic: Denies headache(s) Hematologic/Lymphatic Hematologic/Lymphatic: Denies easy bleeding or easy bruising Allergic/Immunologic Allergic/Immunologic ED: Denies mouth swelling or tongue swelling EXAM Physical Exam Const Vital Signs: 02/29/24 20:56 Temperature 98.2 F Temperature Source Temporal Pulse Rate 110 H Respiratory Rate 16 Blood Pressure 141/96 H Blood Pressure Mean 111 Pulse Ox 98 Oxygen Delivery Method Room Air Positive well nourished and well developed General Appearance ED: well developed; Negative for pallor HEENT HEENT Narrative: Patient has multiple dental caries noted with mild erythema and soft tissue swelling of the gingiva without obvious dental abscess formation. No signs of ANUG. No airway edema or compromise or signs of infection in the posterior pharynx Eyes PERRL and EOMs intact bilaterally General Eye ED: Negative for scleral icterus Neck supple Neck Narrative: No brawny edema in the submental space to suggest Aime's angina Resp normal respiratory effort and clear to auscultation bilaterally Cardio regular rate and regular rhythm Extremity normal to inspection Neuro oriented x3, CN's II-XII intact bilaterally and no sensory deficits noted Sensorium / Orientation: alert Motor Exam: strength 5/5 throughout Psych mental status grossly normal Skin no rashes or lesions noted General Skin Exam: Negative for jaundice or pallor MDM MDM MDM Narrative Medical decision making narrative: Patient arrived to the ER hypertensive but otherwise with stable vitals. He has a longstanding history of dental decay and recurrent infections. There are no physical exam findings to suggest ANUG or peritonsillar abscess or signs of Aime's angina. Therefore do not feel there is need for imaging or laboratory testing. His physical exam is consistent with early dental infection and therefore will be placed on antibiotics to help resolve the infection and is otherwise safe for discharge and he has no signs of airway compromise or systemic symptoms. History & Record Review Discussion w/independent historian: Patient Discharge Plan Triage Chief Complaint: Dental ED Provider: Garfield Milian Dx/Rx/DC Orders Clinical Impression: Dental caries, Dental infection, ADHD, Bipolar disorder Instructions: Dental Abscess, Understanding Tooth Decay Prescriptions: New clindamycin HCl [Cleocin HCl] 300 mg capsule 300 mg PO 4X/DAY 10 Days Qty: 40 0RF No Action clonidine HCl 0.1 MG tablet 0.1 mg PO TID lamotrigine [Lamictal] 200 MG tablet 150 mg PO BID quetiapine [Seroquel] 300 MG tablet 400 mg PO QHS buprenorphine-naloxone [Suboxone] 1 EACH film 1 ea PO BID citalopram 20 MG tablet 30 mg PO DAILY acetaminophen [Mapap (acetaminophen)] 500 mg capsule 1,000 mg PO TID PRN PRN (Reason: fever or pain) Qty: 60 0RF amoxicillin 875 mg tablet 875 mg PO BID Qty: 20 0RF sulfamethoxazole-trimethoprim [Bactrim DS] 800-160 mg tablet 1 tab PO BID Qty: 20 0RF cephalexin 500 mg capsule 500 mg PO Q6 Qty: 40 0RF Primary Care Provider: Cal Ibrahim Referrals: Cal Ibrahim MD [Primary Care Provider] - Activity Restrictions/Additional Instructions: Please follow-up with your dentist for further evaluation and treatment and return to the ER should you have any further concerns or worsening of symptoms Print Language: Croatian Disposition Disposition: Home, Self Care Discharge Date/Time: 02/29/24 22:27
[2024-02-29] MEDS: Clindamycin HCl 150 MG Capsule 300 MG PO (22:21)
== END 2024-02-29 22:27 | disposition home or self-care (01) ==
PROVIDERS: Emergency Provider Emergency Medicine; PCP Family Medicine; Visit Provider Emergency Medicine
DX: K04.7 Periapical abscess without sinus (principal); F31.9 Bipolar disorder, unspecified; F90.9 Attention-deficit hyperactivity disorder, unspecified type; K02.9 Dental caries, unspecified; Z79.891 Long term (current) use of opiate analgesic; F41.8 Other specified anxiety disorders; Z79.899 Other long term (current) drug therapy; F17.210 Nicotine dependence, cigarettes, uncomplicated
CPT/HCPCS: 99282

== ENCOUNTER 2024-05-08 15:53 | Emergency (ER) | payer MEDICAID, SELFPAY ==
[2024-05-08 15:54] VITALS: BP 138/74; PULSE 107; RESP 18; TEMP 37.3; O2SAT 98; BMI 17.2
--- NOTE | 2024-05-08 16:51 | EDS_ITS ---
HPI History of Present Illness Chief Complaint: Other, Pain/Inj Narrative Narrative: Patient is a 38-year-old male with past medical history of bipolar 1 disorder, anxiety, depression, substance abuse who presents to the emergency department the chief complaint of left medial thigh pain and bump. Patient states that this is progressively been worsening and more painful to the point where he was unable to walk and ambulate today therefore called EMS to have him brought here. Patient states that he has not used IV drugs in over 10 years he states that he does use marijuana. Patient does smoke and denies any alcohol use. Patient states that he has strong family history of blood clots. Patient denies any blood clots himself denies any recent travel history denies any injuries. [facility] Medical History Substance abuse Anxiety and depression Bipolar 1 disorder Home Medications ?Medication ?Instructions ?Recorded ?Last Taken ?Type clonidine HCl 0.1 mg tablet 0.1 mg PO TID 05/23/17 Unknown History buprenorphine 8 mg-naloxone 2 mg 1 ea PO BID 06/07/17 Unknown History sublingual film (Suboxone) lamotrigine 200 mg tablet 150 mg PO BID 06/07/17 Unknown History (Lamictal) quetiapine 300 mg tablet (Seroquel) 400 mg PO QHS 06/07/17 Unknown History citalopram 20 mg tablet 30 mg PO DAILY 12/23/18 Unknown History acetaminophen 500 mg capsule 1,000 mg (2 x 500 mg) PO TID PRN 03/04/23 Unknown Rx (Mapap (acetaminophen)) PRN fever or pain #60 caps acetaminophen 500 mg capsule 500 mg PO Q6H PRN fever or pain 05/08/24 Unknown Rx (Mapap (acetaminophen)) #60 caps Allergy/AdvReac Type Severity Reaction Status Date / Time red dye Allergy Swelling Verified 05/08/24 15:54 Social History household members: none Smoking Status: Current every day smoker tobacco type: cigarettes alcohol intake: former substance use type: former substance user and opiates ROS ROS ED ROS Narrative Constitutional: Complains of chills denies fevers, headaches, lightness, dizziness Eyes: Denies change in vision double vision blurry vision Cardiovascular: Denies chest pain or palpitations Respiratory: Denies coughing wheezing shortness of breath Abdomen: Denies abdominal pain nausea vomit diarrhea : Denies any urinary symptoms. Denies any testicular pain, urethral discharge Neurological: Denies numbness, weakness, tingling Musculoskeletal: Complains of left medial thigh pain as noted above Skin: Denies rashes or lesions EXAM Physical Exam Narrative Exam Narrative: General: Patient lying in bed did appear to be uncomfortable Head: Atraumatic, normocephalic Eyes: PERRL bilateral, EOMI bilateral, no conjunctival injection noted Neck: Soft, supple, trachea midline Cardiovascular: Patient was tachycardic with a regular rhythm no murmurs gallops rubs noted Respiratory: Clear to auscultation bilaterally Abdomen: Soft, nondistended, nontender to palpation, bowel sounds present x 4 Musculoskeletal: Patient has tenderness to palpation over the left medial thigh no fluctuance notedoverlying erythema this was tender to palpation up into his groin region Extremities: DP pulses +2/4 in the bilateral lower extremities, +5/5 strength noted in the bilateral upper and lower extremities Genitourinary: Bilateral cremasteric reflex noted, no urethral discharge, no testicular pain noted bilaterally no epididymal pain bilaterally Neurological: Patient follow commands knew he was at [facility] years 24 Skin: Warm, dry, intact no rashes or lesions noted Const Vital Signs: 05/08/24 15:54 05/08/24 16:01 05/08/24 17:54 Temperature 99.2 F H Temperature Source Oral Pulse Rate 107 H 98 Respiratory Rate 18 18 Respiratory Effort Normal Non-Labored Blood Pressure 138/74 H 113/64 Blood Pressure Mean 95 80 Pulse Ox 98 Oxygen Delivery Method Room Air 05/08/24 19:00 05/08/24 21:00 Temperature Temperature Source Pulse Rate 71 93 Respiratory Rate 16 16 Respiratory Effort Blood Pressure Blood Pressure Mean Pulse Ox 95 97 Oxygen Delivery Method Room Air MDM MDM MDM Narrative Medical decision making narrative: Patient is a 38-year-old male who presented to the emergency department chief complaint of left leg pain/thigh pain. Patient will have a workup performed here on the differential diagnose includes includes but not limited to DVT, superficial venous thrombosis, abscess. Once workup is obtained reviewed he will be reevaluated. Patient CBC reviewed no significant leukocytosis of 14,000, hemoglobin 13.7, platelet count was normal at 165. Patient sodium was 133, potassium normal 3.9, creatinine normal at 0.79. Patient lactic acid normal at 1.1, AST and ALT were 39 41 and 29 respectively. Patient lipase normal at 14, urinalysis reviewed and showed no evidence of infection. Patient's venous duplex showed no acute findings in the lower extremity veins there is a large lymph node in the region of pain. On reevaluation the patient and I discussed results with the patient he would like to go home. Patient states that he has no history of STDs or concern for this. He is advised to follow-up with his primary care physician on the enlarged lymph nodes and keep a close eye on this. He was advised to place heat on this and use ibuprofen and Tylenol. He is requesting a prescription be sent to the pharmacy which will be done. Patient would like to go home all question concerns answered is discharged home in stable condition Lab Data Labs: Laboratory Results - last 24 hr 05/08/24 05/08/24 05/08/24 16:57 16:57 19:09 WBC Cancelled 14.8 H Corrected WBC Cancelled RBC Cancelled 4.86 Hgb Cancelled 13.7 Hct Cancelled 40.4 MCV Cancelled 83.1 MCH Cancelled 28.2 MCHC Cancelled 33.9 RDW Std Deviation Cancelled 40.6 RDW Coeff of Nathan Cancelled 13.4 Plt Count Cancelled 165 MPV Cancelled 10.2 Immature Gran % (Auto) Cancelled 0.600 Neut % (Auto) Cancelled 73.8 H Lymph % (Auto) Cancelled 3.9 L Payette % (Auto) Cancelled 7.5 Eos % (Auto) Cancelled 13.9 H Baso % (Auto) Cancelled 0.3 Absolute Neuts (auto) Cancelled 10.9 H Absolute Lymphs (auto) Cancelled 0.57 L Total Counted Cancelled Neutrophils % (Manual) Cancelled Band Neutrophils % Cancelled Lymphocytes % (Manual) Cancelled Monocytes % (Manual) Cancelled Eosinophils % (Manual) Cancelled Basophils % (Manual) Cancelled Metamyelocytes % Cancelled Myelocytes % Cancelled Promyelocytes % Cancelled Blast Cells % Cancelled Plasma Cell % (Manual) Cancelled Other Cells % Cancelled Nucleated RBC % Cancelled 0 Nucleated RBCs/100 WBC Cancelled Differential Comment Cancelled SCANNED Diff Path Review Cancelled Hypersegmented Neuts Cancelled Atypical Lymphocytes Cancelled Reactive Lymphocytes Cancelled Smudge Cells Cancelled Toxic Granulation Cancelled Toxic Vacuolation Cancelled Dohle Bodies Cancelled Vignesh Rods Cancelled Platelet Estimate Cancelled Plt Morphology Comment Cancelled RBC Morphology Cancelled Cancelled Polychromasia Cancelled Hypochromasia Cancelled Basophilic Stippling Cancelled Anisocytosis Cancelled Microcytosis Cancelled Macrocytosis Cancelled Spherocytes Cancelled Sickle Cells Cancelled Target Cells Cancelled Tear Drop Cells Cancelled Ovalocytes Cancelled Stomatocytes Cancelled [place] Bodies Cancelled [place] Cells Cancelled Bite Cells Cancelled Crenated Cell Cancelled Acanthocytes (Spur) Cancelled Rouleaux Cancelled Schistocytes Cancelled Sodium 133 L Potassium 3.9 Chloride 107 Carbon Dioxide 20.0 L Anion Gap 6 BUN 11 Creatinine 0.79 Estim Creat Clear Calc 110.98 Est GFR (MDRD) Af Amer 142 Est GFR (MDRD) Non-Af 117 BUN/Creatinine Ratio 13.9 Glucose 115 H Lactic Acid 1.1 Calcium 8.8 Total Bilirubin 0.60 AST 31 ALT 29 Alkaline Phosphatase 97 Total Protein 8.1 Albumin 4.0 Globulin 4.1 Albumin/Globulin Ratio 1.0 Lipase 14 Urine Color Urine Clarity Urine pH Ur Specific [place] Urine Protein Urine Glucose (UA) Urine Ketones Urine Occult Blood Urine Nitrite Urine Bilirubin Urine Urobilinogen Ur Leukocyte Esterase Urine RBC Urine WBC Ur Squamous Epith Cells Urine Bacteria Urine Mucus 05/08/24 19:12 WBC Corrected WBC RBC Hgb Hct MCV MCH MCHC RDW Std Deviation RDW Coeff of Nathan Plt Count MPV Immature Gran % (Auto) Neut % (Auto) Lymph % (Auto) [place] % (Auto) Eos % (Auto) Baso % (Auto) Absolute Neuts (auto) Absolute Lymphs (auto) Total Counted Neutrophils % (Manual) Band Neutrophils % Lymphocytes % (Manual) Monocytes % (Manual) Eosinophils % (Manual) Basophils % (Manual) Metamyelocytes % Myelocytes % Promyelocytes % Blast Cells % Plasma Cell % (Manual) Other Cells % Nucleated RBC % Nucleated RBCs/100 WBC Differential Comment Diff Path Review Hypersegmented Neuts Atypical Lymphocytes Reactive Lymphocytes Smudge Cells Toxic Granulation Toxic Vacuolation Dohle Bodies Vignesh Rods Platelet Estimate Plt Morphology Comment RBC Morphology Polychromasia Hypochromasia Basophilic Stippling Anisocytosis Microcytosis Macrocytosis Spherocytes Sickle Cells Target Cells Tear Drop Cells Ovalocytes Stomatocytes [place] Bodies Avel Cells Bite Cells Crenated Cell Acanthocytes (Spur) Rouleaux Schistocytes Sodium Potassium Chloride Carbon Dioxide Anion Gap BUN Creatinine Estim Creat Clear Calc Est GFR (MDRD) Af Amer Est GFR (MDRD) Non-Af BUN/Creatinine Ratio Glucose Lactic Acid Calcium Total Bilirubin AST ALT Alkaline Phosphatase Total Protein Albumin Globulin Albumin/Globulin Ratio Lipase Urine Color Yellow Urine Clarity Clear Urine pH 7.0 Ur Specific [place] 1.010 Urine Protein 15 H Urine Glucose (UA) Normal Urine Ketones Negative Urine Occult Blood Negative Urine Nitrite Negative Urine Bilirubin Negative Urine Urobilinogen 1 H Ur Leukocyte Esterase 25 H Urine RBC 0 SEEN Urine WBC 0-5 SEEN Ur Squamous Epith Cells 0-5 SEEN Urine Bacteria 1+ Urine Mucus 0 SEEN Radiography Diagnostic Testing: Clinical Impression(s) from Imaging Studies Venous Duplex 05/08/24 17:00 IMPRESSION: No acute findings in the left lower extremity veins. There is an enlarged lymph node in the region of pain. Electronically Signed: Yousif Griffiths MD at 19:25 EST , Discharge Plan Triage Chief Complaint: Other, Pain/Inj ED Provider: Evert Lee Dx/Rx/DC Orders Clinical Impression: Leg pain, left Prescriptions: New acetaminophen [Mapap (acetaminophen)] 500 mg capsule 500 mg PO Q6H PRN (Reason: fever or pain) Qty: 60 0RF No Action clonidine HCl 0.1 MG tablet 0.1 mg PO TID lamotrigine [Lamictal] 200 MG tablet 150 mg PO BID quetiapine [Seroquel] 300 MG tablet 400 mg PO QHS buprenorphine-naloxone [Suboxone] 1 EACH film 1 ea PO BID citalopram 20 MG tablet 30 mg PO DAILY acetaminophen [Mapap (acetaminophen)] 500 mg capsule 1,000 mg PO TID PRN PRN (Reason: fever or pain) Qty: 60 0RF Primary Care Provider: Cal Ibrahim Referrals: Cal Ibrahim MD [Primary Care Provider] - Activity Restrictions/Additional Instructions: Put heat on the area, use ibuprofen and Tylenol for pain control. Take the ultrasound results to your primary care physician and follow-up on this with them. Return with worsening symptoms or any other concerns Print Language: Turkish Disposition Disposition: Home, Self Care
--- NOTE | 2024-05-08 17:00 | US_ITS ---
EXAM: US DUPLEX LEFT LOWER EXTREMITY VEINS CLINICAL INDICATION: LT LEG PAIN TECHNIQUE: Real-time duplex ultrasound scan of the left lower extremity veins integrating B-mode two-dimensional vascular structure, Doppler spectral analysis, color flow Doppler imaging and compression. COMPARISON: No relevant prior studies available. FINDINGS: DEEP VEINS: Unremarkable. No DVT in the visualized common femoral, femoral, proximal deep femoral or popliteal veins. The veins demonstrate normal color flow, are normally compressible, with normal phasic flow and/or augmentation response. SUPERFICIAL VEINS: Unremarkable. No thrombus in the visualized great saphenous vein. SOFT TISSUES: No acute findings. No popliteal cyst. LYMPH NODES: There is a lymph node in the left groin that measures 3.1 x 1.0 x 1.3 cm. US/Venous Duplex Imag/Limited/Uni IMPRESSION: No acute findings in the left lower extremity veins. There is an enlarged lymph node in the region of pain. Electronically Signed: Yousif Griffiths MD at 19:25 EST ,
[2024-05-08 17:38] LABS: AST(SGOT) 31 U/L (15-37); Alanine Aminotransfer ALT/SGPT 29 U/L (16-61); Alkaline Phosphatase 97 U/L (45-117); Anion Gap 6 (5-15); BUN 11 mg/dL (7-18); BUN/Creat Ratio 13.9 RATIO (10-20); Calcium,Total 8.8 mg/dL (8.5-10.1); Chloride 107 mmol/L (98-107); Creatinine, Serum 0.79 mg/dL (0.70-1.30); EST Glomerular Filtration Rate 117 mL/min (>60); Est Glom Filt Rate - Afr Amer 142 mL/min (>60); Estimated Creatinine Clearance 110.98 ml/min; Globulin 4.1 g/dL (2.2-4.2); Glucose 115 mg/dL (74-106); Lipase 14 U/L (13-75); Potassium 3.9 mmol/L (3.5-5.1); Protein, Total 8.1 g/dL (6.4-8.2); Sodium Level 133 mmol/L (136-145)
[2024-05-08 17:54] VITALS: BP 113/64; PULSE 98; RESP 18
[2024-05-08 19:00] VITALS: PULSE 71; RESP 16; O2SAT 95
[2024-05-08 19:18] LABS: Mucous, Urine 0 SEEN /hpf (<or=2+); Red Blood Cells-Urine 0 SEEN /hpf (0-5)
[2024-05-08 19:20] LABS: Absolute Lymphocyte Count 0.57 X10^3/uL (0.83-4.51); Absolute Neutrophil Count 10.9 X10^3/uL (2.0-7.7); Basophil# 0.04 X10^3/uL; Basophil% 0.3 % (0-1); Eosinophil# 2.05 X10^3/uL; Eosinophils% 13.9 % (0-5); Hematocrit 40.4 % (40-54); Hemoglobin 13.7 g/dL (13.0-16.5); Lymphocyte # 0.57 X10^3/ul (0.83-4.51); Lymphocyte % 3.9 % (19-41); Mean Corp Hgb Conc 33.9 g/dL (32-36); Mean Corpuscular Hgb 28.2 pg (27.0-32.0); Mean Corpuscular Volume 83.1 fL (80-94); Mean Platelet Vol. 10.2 fl (6.2-12.0); Monocyte# 1.11 X10^3/uL; Monocyte% 7.5 % (0-10); NRBC Flagged by Analyzer 0 % (0-5); Neutrophil # 10.89 X10^3/uL (2.7-7.7); Neutrophil % 73.8 % (47-70); POSITIVE DIFFERENTIAL YES; POSITIVE MORPHOLOGY YES; Platelet Count 165 K/mm3 (150-450); RBC Distribution Width CV 13.4 % (11.6-14.6); RBC Distribution Width SD 40.6 fl (35.1-43.9); Red Blood Count 4.86 M/mm3 (4.6-6.2); White Blood Count 14.8 K/mm3 (4.4-11.0)
[2024-05-08 19:24] LABS: Color, Urine Yellow (Yellow); Glucose, Dipstick Normal (Normal); Ketone-Dipstick Negative (Negative); Leukocyte Esterase-Dipstick 25 /ul (Negative); Nitrite-Dipstick Negative (Negative); Occult Blood-Urine Negative /ul (Negative); Protein-Dipstick 15 mg/dl (Negative); Urine Bilirubin Dipstick Negative (Negative); Urine Clarity Clear (Clear); Urine Urobilinogen 1 mg/dl (Normal)
[2024-05-08] MEDS: Ketorolac 15 MG/ML Vial IV (19:31)
[2024-05-08 19:47] LABS: Differential Indicated SCAN CRITERIA MET
[2024-05-08 20:03] LABS: Lactic Acid 1.1 mmol/L (0.4-1.9)
[2024-05-08 20:05] LABS: Bacteria 1+ /hpf (None Seen); Squamous Epithelial Cells - UA 0-5 SEEN /hpf (0-5); White Blood Cells 0-5 SEEN /hpf (0-5)
[2024-05-08 20:28] LABS: Differential Comment SCANNED
[2024-05-08 21:00] VITALS: PULSE 93; RESP 16; O2SAT 97
[2024-05-08 22:25] VITALS: BP 113/64; PULSE 93; RESP 16; TEMP 37.3; O2SAT 97
== END 2024-05-08 22:26 | disposition home or self-care (01) ==
PROVIDERS: Emergency Provider Emergency Medicine; PCP Family Medicine; Visit Provider Emergency Medicine
DX: M79.605 Pain in left leg (principal); F31.9 Bipolar disorder, unspecified; F17.210 Nicotine dependence, cigarettes, uncomplicated; Z79.899 Other long term (current) drug therapy; F41.8 Other specified anxiety disorders
CPT/HCPCS: 80053; 81001; 83605; 83690; 85025; 93971; 96374; 99285; A4216

== ENCOUNTER 2024-05-10 13:10 | Emergency (ER) | payer MEDICAID, SELFPAY ==
[2024-05-10 13:11] VITALS: BP 98/75; PULSE 87; RESP 16; TEMP 36.3; O2SAT 100
--- NOTE | 2024-05-10 13:40 | EDS_ITS ---
HPI History of Present Illness Chief Complaint: Other, Pain/Inj Narrative Narrative: 38-year-old male past medical history of remote intravenous drug abuse, in recovery, bipolar disorder, ADHD, presents with continued left thigh pain, along with redness and blotches on his left medial thigh. He denies any chest pain or shortness of breath. He relates history that 2 days ago, he began having left thigh pain to the point where he was unable to walk well. He was having difficulty with ambulation. He had a fever previously that had resolved. He was seen in the emergency department 2 days ago and had a workup and presents the ultrasound results of his left lower extremity. While there is no evidence of DVT, there was an enlarged lymph node in the area of tenderness more towards his left groin/inguinal area. He states that he was discharged and was trying to follow-up with a primary care provider but it was noted that he had not been seen by his primary care in quite some time so he would have to start the process over again, but the office was not taking new patients currently. He presents to the emergency department with concern that he will not be able to find someone to follow-up with regarding his left leg pain and enlarged lymph node. He wants a referral to a new primary care provider. Additionally, while he states he has not had fever or new symptoms, this is with the exception of red patches on his left lower extremity and medial thigh mainly. These areas are not tender, but he is having tenderness along his left medial thigh. [facility] Medical History Substance abuse Anxiety and depression Bipolar 1 disorder Home Medications ?Medication ?Instructions ?Recorded ?Last Taken ?Type clonidine HCl 0.1 mg tablet 0.1 mg PO TID 05/23/17 Unknown History buprenorphine 8 mg-naloxone 2 mg 1 ea PO BID 06/07/17 Unknown History sublingual film (Suboxone) lamotrigine 200 mg tablet 150 mg PO BID 06/07/17 Unknown History (Lamictal) quetiapine 300 mg tablet (Seroquel) 400 mg PO QHS 06/07/17 Unknown History citalopram 20 mg tablet 30 mg PO DAILY 12/23/18 Unknown History acetaminophen 500 mg capsule 1,000 mg (2 x 500 mg) PO TID PRN 03/04/23 Unknown Rx (Mapap (acetaminophen)) PRN fever or pain #60 caps acetaminophen 500 mg capsule 500 mg PO Q6H PRN fever or pain 05/08/24 Unknown Rx (Mapap (acetaminophen)) #60 caps amoxicillin 875 mg-potassium 1 tab PO BID #14 tabs 05/10/24 Unknown Rx clavulanate 125 mg tablet Allergy/AdvReac Type Severity Reaction Status Date / Time red dye Allergy Swelling Verified 05/08/24 15:54 Social History household members: none Smoking Status: Current every day smoker tobacco type: cigarettes alcohol intake: former substance use type: former substance user and opiates ROS ROS ED ROS Narrative Focused systems positive for left eye tenderness with pain along on the medial aspect. Red splotches/patches on skin that were new today. No fever, no nausea or vomiting, no new symptoms. EXAM Physical Exam Narrative Exam Narrative: Afebrile. Vital signs noted. Nontoxic-appearing. Cardiovascular examination regular rate and rhythm. Lungs are clear to auscultation bilaterally. Abdomen soft and nontender with normal active bowel sounds. Inspection of the right medial thigh reveals an enlarged lymph node in the inguinal area without fluctuance. There are patches of blanchable redness on his left thigh. Is not mottling. He has full range of motion of his left thigh and of his left hip and knee joint. Inspection of the foot reveals areas of open skin and cellulitis of his forefoot. Areas of dirt underneath toenails, and on skin of heel. Const Vital Signs: 05/10/24 13:11 05/10/24 13:21 Temperature 97.4 F L Temperature Source Temporal Pulse Rate 87 Respiratory Rate 16 Respiratory Effort Normal Non-Labored Respiratory Pattern Normal Blood Pressure 98/75 Blood Pressure Mean 82 Pulse Ox 100 Oxygen Delivery Method Room Air MDM MDM MDM Narrative Medical decision making narrative: Patient states he goes barefoot a lot and will pick the area around his toenails. I am unsure as to the patches of redness on his medial thigh, he states those are not painful or burning, but it is rather that he has pain all along his medial thigh. Differential diagnosis includes but not limited to lymphadenitis versus DVT versus cellulitis of foot. I reviewed his prior ED visit and workup. He recently had a DVT study 2 days ago and I do not feel it needs to be repeated. Ultrasound is also unavailable at this time. I do not feel he is septic and requires more laboratory work. He was given his first dose of Augmentin here and a prescription written for the next week to take twice a day. I feel he is probably having reactionary lymphadenitis from cellulitis on his left foot. It should be noted, that he does have small areas on his right foot as well that may be slightly cellulitic. His hands are chronically erythematous he states that are always like this. He was referred to new primary care providers, but he was also told that as he has care source, that he should call the insurance company if the name listed on his card was Dr. Townsend and he can no longer see them because they are taking new patients. He can also get a referral that way. Patient is motivated for discharge. I feel he can be discharged to follow-up. Return instructions reviewed. Disposition is discharged home in stable condition. History & Record Review Discussion w/independent historian: Patient Discharge Plan Triage Chief Complaint: Other, Pain/Inj ED Provider: Roly Mills Dx/Rx/DC Orders Clinical Impression: Acute lymphadenitis of lower extremity, Cellulitis of foot, left Instructions: ED Cellulitis, ED Lymphangitis Prescriptions: New amoxicillin-pot clavulanate 875-125 mg tablet 1 tab PO BID Qty: 14 0RF No Action clonidine HCl 0.1 MG tablet 0.1 mg PO TID lamotrigine [Lamictal] 200 MG tablet 150 mg PO BID quetiapine [Seroquel] 300 MG tablet 400 mg PO QHS buprenorphine-naloxone [Suboxone] 1 EACH film 1 ea PO BID citalopram 20 MG tablet 30 mg PO DAILY acetaminophen [Mapap (acetaminophen)] 500 mg capsule 1,000 mg PO TID PRN PRN (Reason: fever or pain) Qty: 60 0RF acetaminophen [Mapap (acetaminophen)] 500 mg capsule 500 mg PO Q6H PRN (Reason: fever or pain) Qty: 60 0RF Primary Care Provider: Care Physician,No Primary Referrals: Cal Ibrahim MD [Non-Staff] - Sebastián Neumann MD [Med Staff - Active Staff] - As soon as possible Erika Pina [facility], DO [[facility]] - As soon as possible Activity Restrictions/Additional Instructions: Follow-up with a primary care provider as soon as possible, preferably in the next week. You should also call care source and ask for a primary care referral. Return to the emergency department with sustained high fever, increased pain, new or worsening symptoms. Print Language: Slovak Disposition Disposition: Home, Self Care
[2024-05-10] MEDS: Amox/Clavulanate 875 MG Tablet PO (13:54)
[2024-05-10 13:58] VITALS: BP 119/67; PULSE 72; RESP 14; TEMP 37; O2SAT 99
== END 2024-05-10 14:00 | disposition home or self-care (01) ==
PROVIDERS: Emergency Provider Emergency Medicine; Visit Provider Emergency Medicine
DX: L04.3 Acute lymphadenitis of lower limb (principal); F31.9 Bipolar disorder, unspecified; L03.116 Cellulitis of left lower limb; F17.210 Nicotine dependence, cigarettes, uncomplicated; R10.32 Left lower quadrant pain; M79.652 Pain in left thigh; F41.9 Anxiety disorder, unspecified; F90.9 Attention-deficit hyperactivity disorder, unspecified type
CPT/HCPCS: 99282

== ENCOUNTER 2024-06-26 09:40 | Emergency (ER) | payer MEDICAID, SELFPAY ==
[2024-06-26 09:41] VITALS: BP 138/90; PULSE 55; RESP 18; TEMP 36.1; O2SAT 100; BMI 17.4
--- NOTE | 2024-06-26 10:17 | EDS_ITS ---
HPI History of Present Illness Chief Complaint: Dental Detail of Chief Complaint: Dental pain Informant: patient Onset/Context/Timing Onset: Yesterday Context: Sudden Onset Quality: Pain Location: Multiple teeth Current Severity: Moderate Maximum Severity: Severe Worsened by: Air, liquids Associated Symptoms Assocated Symptom - Dental: cold sensitivity; Negative for fever, jaw swelling or face swelling Narrative Narrative: Patient is a 37-year-old male on Suboxone. He presents with dental pain that started yesterday. He has an appointment to be seen next month to have all of his teeth extracted. He denies fever, chills night sweats. He denies history medic fever, heart murmur, mitral prolapse or SBE. Patient is not immune suppressed. Patient does not have allergy to penicillin. He does have allergy to red dye which limits some antibiotic choices. Patient denies change in voice, difficulty swallowing liquids or solids. He denies difficulty breathing. He denies any skin lesions or rash. He denies myalgias arthralgias. Prior similar symptoms: Yes Recent Illness/Hospitalization: No [facility] Medical History Substance abuse Anxiety and depression Bipolar 1 disorder Home Medications ?Medication ?Instructions ?Recorded ?Last Taken ?Type clonidine HCl 0.1 mg tablet 0.1 mg PO TID 05/23/17 Unknown History buprenorphine 8 mg-naloxone 2 mg 1 ea PO BID 06/07/17 Unknown History sublingual film (Suboxone) lamotrigine 200 mg tablet 150 mg PO BID 06/07/17 Unknown History (Lamictal) quetiapine 300 mg tablet (Seroquel) 400 mg PO QHS 06/07/17 Unknown History citalopram 20 mg tablet 30 mg PO DAILY 12/23/18 Unknown History acetaminophen 500 mg capsule 1,000 mg (2 x 500 mg) PO TID PRN 03/04/23 Unknown Rx (Mapap (acetaminophen)) PRN fever or pain #60 caps acetaminophen 500 mg capsule 500 mg PO Q6H PRN fever or pain 05/08/24 Unknown Rx (Mapap (acetaminophen)) #60 caps amoxicillin 875 mg-potassium 1 tab PO BID #14 tabs 05/10/24 Unknown Rx clavulanate 125 mg tablet naproxen 500 mg tablet 500 mg PO BID #20 tabs 06/26/24 Unknown Rx penicillin V potassium 250 mg 500 mg (2 x 250 mg) PO 4X/DAY #40 06/26/24 Unknown Rx tablet tabs Allergy/AdvReac Type Severity Reaction Status Date / Time red dye Allergy Swelling Verified 05/08/24 15:54 Social History household members: none Smoking Status: Current every day smoker tobacco type: cigarettes alcohol intake: former substance use type: former substance user and opiates ROS ROS ED Constitutional Constitutional ED: Denies chills, fever(s), subjective, sweats or weight loss Eyes Eyes: Denies blurry vision or change in vision ENT ENT ED: Reports other Details: Per HPI narrative ; Denies ear pain, rhinorrhea or sore throat Cardiovascular Cardiovascular: Denies chest pain or palpitations Respiratory/Chest Respiratory/Chest: Denies cough, dyspnea or dyspnea on exertion Gastrointestinal Gastrointestinal: Denies nausea or vomiting Musculoskeletal Musculoskeletal: Denies arthralgias or myalgias Integumentary Denies rash Allergic/Immunologic Allergic/Immunologic ED: Denies mouth swelling or tongue swelling EXAM Physical Exam Const Vital Signs: 06/26/24 09:41 Temperature 96.9 F L Temperature Source Temporal Pulse Rate 55 L Respiratory Rate 18 Blood Pressure 138/90 H Blood Pressure Mean 106 Pulse Ox 100 Positive well nourished and well developed Constitutional Narrative: Patient appears pale. He states he does not feel well. He was upfront that he is on Suboxone. General Appearance ED: well developed; Negative for NAD HEENT HEENT Narrative: Patient has erosion of multiple teeth to the dentin, pulp and even to the gumline. There is evidence of gingivitis and periodontal disease. There is no facial swelling. There is no trismus. Patient does have bilateral submandibular lymphadenopathy. There is no dysphonia. There is no abnormality of the floor of the tongue. Mouth ED: Yes oral and palatal mucosa normal, Yes lips normal, Yes tongue normal, Yes salivary gland normal, No mouth trauma and Yes oral and palatal mucosa abnormal Mouth: oral and palatal mucosa normal, lips normal, tongue normal, salivary gland normal, No mouth trauma and oral and palatal mucosa abnormal Teeth and Gingiva: abnormal tooth and associated gingiva, caries, gingiva abnormal, poor dentition and teeth discoloration Eyes PERRL and EOMs intact bilaterally General Eye ED: Negative for pale conjunctiva or scleral icterus Neck No no lymphadenopathy, supple and no JVD Neck Narrative: Trachea is midline. There is no inspiratory or expiratory stridor. General: normal visual inspection, tenderness and submandibular swelling; Negative for anterior neck swelling Lymph Lymphatic: lymphadenopathy Resp normal respiratory effort, no retractions and clear to auscultation bilaterally Cardio regular rate, regular rhythm, S1 normal heart sound, S2 normal heart sound and no murmurs Extremity normal to inspection and no joint enlargement Neuro oriented x3 and CN's II-XII intact bilaterally Sensorium / Orientation: alert Skin no rashes or lesions noted MDM MDM MDM Narrative Medical decision making narrative: Patient with numerous dental caries and probable apical abscess. Unable to assess for apical abscess since we do not have dental film capability. Patient was treated with NSAID and antibiotic. He was instructed to contact the dentist to see if his appointment can be moved up. There is no concern for facial cellulitis, Ludewig's angina, submandibular space infection etc. 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 Instructions: ED Dental Abscess Prescriptions: New penicillin V potassium 250 mg tablet 500 mg PO 4X/DAY Qty: 40 0RF naproxen 500 mg tablet 500 mg PO BID Qty: 20 0RF No Action clonidine HCl 0.1 MG tablet 0.1 mg PO TID lamotrigine [Lamictal] 200 MG tablet 150 mg PO BID quetiapine [Seroquel] 300 MG tablet 400 mg PO QHS buprenorphine-naloxone [Suboxone] 1 EACH film 1 ea PO BID citalopram 20 MG tablet 30 mg PO DAILY acetaminophen [Mapap (acetaminophen)] 500 mg capsule 1,000 mg PO TID PRN PRN (Reason: fever or pain) Qty: 60 0RF acetaminophen [Mapap (acetaminophen)] 500 mg capsule 500 mg PO Q6H PRN (Reason: fever or pain) Qty: 60 0RF amoxicillin-pot clavulanate 875-125 mg tablet 1 tab PO BID Qty: 14 0RF Primary Care Provider: Care Physician,No Primary Referrals: Care Physician,No Primary [Primary Care Provider] - Dentist,Your [STAFF PHYSICIAN] - As soon as possible Print Language: Faroese Disposition Disposition: Home, Self Care
[2024-06-26] MEDS: Penicillin Vk 250 MG Tablet 500 MG PO (10:26)
[2024-06-26] MEDS: Naproxen 500 MG Tablet PO (10:29)
== END 2024-06-26 10:35 | disposition home or self-care (01) ==
PROVIDERS: Emergency Provider Emergency Medicine; Visit Provider Emergency Medicine
DX: K04.7 Periapical abscess without sinus (principal); F31.9 Bipolar disorder, unspecified; K02.9 Dental caries, unspecified; F17.210 Nicotine dependence, cigarettes, uncomplicated; K05.00 Acute gingivitis, plaque induced
CPT/HCPCS: 99283

== ENCOUNTER 2024-06-27 11:37 | Emergency (ER) | payer MEDICAID, SELFPAY ==
[2024-06-27 11:37] VITALS: BP 142/93; PULSE 150; RESP 16; TEMP 35.8; O2SAT 98
--- NOTE | 2024-06-27 11:50 | ED.VIS.DENTA ---
HPI <VANCE Mccoy - Last Filed: 06/27/24 12:23> History of Present Illness Chief Complaint: Dental Narrative Narrative: 38-year-old male was seen here yesterday for dental pain that started 2 days ago. He was prescribed penicillin and naproxen and is taking these along with Tylenol but states he has increased pain on the left side. The pain is in his upper and lower molars. He felt like there was a pop and the pain is now radiating towards his ear. He has no fever chills or difficulty swallowing or breathing. No facial or neck swelling is present. He states he cannot get into his dentist until August 11. PFS <VANCE Mccoy - Last Filed: 06/27/24 12:23> [facility] Medical History Substance abuse Anxiety and depression Bipolar 1 disorder Home Medications ?Medication ?Instructions ?Recorded ?Last Taken ?Type clonidine HCl 0.1 mg tablet 0.1 mg PO TID 05/23/17 Unknown History buprenorphine 8 mg-naloxone 2 mg 1 ea PO BID 06/07/17 Unknown History sublingual film (Suboxone) lamotrigine 200 mg tablet 150 mg PO BID 06/07/17 Unknown History (Lamictal) quetiapine 300 mg tablet (Seroquel) 400 mg PO QHS 06/07/17 Unknown History citalopram 20 mg tablet 30 mg PO DAILY 12/23/18 Unknown History acetaminophen 500 mg capsule 1,000 mg (2 x 500 mg) PO TID PRN 03/04/23 Unknown Rx (Mapap (acetaminophen)) PRN fever or pain #60 caps acetaminophen 500 mg capsule 500 mg PO Q6H PRN fever or pain 05/08/24 Unknown Rx (Mapap (acetaminophen)) #60 caps amoxicillin 875 mg-potassium 1 tab PO BID #14 tabs 05/10/24 Unknown Rx clavulanate 125 mg tablet naproxen 500 mg tablet 500 mg PO BID #20 tabs 06/26/24 Unknown Rx penicillin V potassium 250 mg 500 mg (2 x 250 mg) PO 4X/DAY #40 06/26/24 Unknown Rx tablet tabs Allergy/AdvReac Type Severity Reaction Status Date / Time red dye Allergy Swelling Verified 06/27/24 11:37 Social History household members: none Smoking Status: Current every day smoker tobacco type: cigarettes alcohol intake: former substance use type: former substance user and opiates ROS <VANCE Mccoy - Last Filed: 06/27/24 12:23> ROS ED ROS Narrative Constitutional: Negative for fever, chills, malaise. Respiratory: Negative for shortness of breath. GI: Negative for nausea, vomiting. Neuro: Negative for headache. EXAM <VANCE Mccoy - Last Filed: 06/27/24 12:23> Physical Exam Narrative Exam Narrative: CONST: Patient sitting in bed appears uncomfortable. EYES: Normal inspection. ENT: Diffuse extensive dental decay with multiple teeth missing or cracked, multiple areas eroded down to the gumline. Tender over left upper and lower molar remnants, no periapical abscess or gingival swelling. No trismus or tongue elevation, sublingual space is soft, normal posterior oropharynx with midline uvula, no drooling or stridor. Normal TMs and mastoids bilaterally. NECK: Normal inspection. Trachea midline, no masses. RESP: No respiratory distress, CTAB. CVS: Regular rate and rhythm, no murmur, no gallop. SKIN: Color normal, no rash, warm, dry, intact. EXTREMITIES: Normal appearance, no pedal edema. NEURO: Alert and answering questions appropriately. PSYCH: Normal affect. Const Vital Signs: 06/27/24 11:37 Temperature 96.5 F L Temperature Source Temporal Pulse Rate 150 H Respiratory Rate 16 Blood Pressure 142/93 H Blood Pressure Mean 109 Pulse Ox 98 Oxygen Delivery Method Room Air <Dr. Yoan Kincaid MD - Last Filed: 06/27/24 12:20> Physical Exam Const Vital Signs: 06/27/24 11:37 Temperature 96.5 F L Temperature Source Temporal Pulse Rate 150 H Respiratory Rate 16 Blood Pressure 142/93 H Blood Pressure Mean 109 Pulse Ox 98 Oxygen Delivery Method Room Air MDM <VANCE Mccoy - Last Filed: 06/27/24 12:23> MDM MDM Narrative Medical decision making narrative: Patient has a flareup of dental pain. He started penicillin and naproxen yesterday. He appears uncomfortable and is agitated but is awake and alert and nontoxic-appearing. He has diffuse poor dentition. He is tender over the right upper molars as well as lower molars but more so superiorly. There is no evidence of periapical abscess or Aime's angina. There is no evidence of ANUG. He is tolerating secretions normally. He was treated with IM Toradol and a left superior maxillary nerve block with good anesthesia. He was advised to continue his antibiotics, [id number] analgesia, and follow-up with the dentist. <Dr. Yoan Kincaid MD - Last Filed: 06/27/24 12:20> MDM Treatment and Re-Evaluation Narrative: I have personally performed a face to face assessment of the patient and have reviewed the DEEPAK Note. I performed a substantive portion of the visit including all aspects of the following. My em findings include: History is flareup of dental pain with history of poor dentition. On Suboxone. Seen here yesterday started on penicillin and something for pain but states the pain is worse especially left upper molar. Hurting left lower molars well. No fevers, bleeding. No discharge. Exam is agitated but follows commands and cooperative. No trismus. Very poor diffuse dentition, no evidence of bleeding, necrotic dentition, focal abscess, or swelling. Tender around [place] left of tooth #15. Medical Decison Making dental block offered as well as a IM Toradol injection. Other additions or changes: [None] Procedures <Dr. Yoan Kincaid MD - Last Filed: 06/27/24 12:20> Other Procedures Procedure(s): Left maxillary dental supraperiosteal nerve block: After topical Cetacaine, injected 1.8 mL of bupivacaine 0.5% with epinephrine into supraperiosteal area above teeth #14 and 15 after aspirating no pus, patient tolerated well no complications had excellent anesthesia. Discharge Plan Triage Chief Complaint: Dental ED Midlevel Provider: Kirstin Copeland ED Provider: Yoan Kincaid Dx/Rx/DC Orders Clinical Impression: Dental caries, Dental abscess Instructions: Dental Abscess Prescriptions: No Action clonidine HCl 0.1 MG tablet 0.1 mg PO TID lamotrigine [Lamictal] 200 MG tablet 150 mg PO BID quetiapine [Seroquel] 300 MG tablet 400 mg PO QHS buprenorphine-naloxone [Suboxone] 1 EACH film 1 ea PO BID citalopram 20 MG tablet 30 mg PO DAILY acetaminophen [Mapap (acetaminophen)] 500 mg capsule 1,000 mg PO TID PRN PRN (Reason: fever or pain) Qty: 60 0RF acetaminophen [Mapap (acetaminophen)] 500 mg capsule 500 mg PO Q6H PRN (Reason: fever or pain) Qty: 60 0RF penicillin V potassium 250 mg tablet 500 mg PO 4X/DAY Qty: 40 0RF naproxen 500 mg tablet 500 mg PO BID Qty: 20 0RF amoxicillin-pot clavulanate 875-125 mg tablet 1 tab PO BID Qty: 14 0RF Primary Care Provider: Care Physician,No Primary Referrals: Care Physician,No Primary [Primary Care Provider] - Activity Restrictions/Additional Instructions: Continue penicillin and naproxen twice a day. You can also take tylenol 1,000 mg every 6 hours for pain. See a dentist NAHUN. Print Language: Vietnamese Disposition Disposition: Home, Self Care
[2024-06-27] MEDS: Ketorolac 30 MG/ML Syringe IM (11:52)
[2024-06-27 12:20] VITALS: BP 138/76; PULSE 104; RESP 18; O2SAT 98
[2024-06-27] MEDS: Bupivacaine 0.5%/Epi 1.8 ML Syringe INFILT (12:22)
== END 2024-06-27 12:22 | disposition home or self-care (01) ==
PROVIDERS: Emergency Provider Emergency Medicine; Visit Provider Emergency Medicine
DX: K04.7 Periapical abscess without sinus (principal); F17.210 Nicotine dependence, cigarettes, uncomplicated; K02.9 Dental caries, unspecified; F41.8 Other specified anxiety disorders; Z79.899 Other long term (current) drug therapy
CPT/HCPCS: 64400; 64999; 96372; 99282

== ENCOUNTER 2024-09-15 11:52 | Emergency (ER) | payer MEDICAID, SELFPAY ==
[2024-09-15] VITALS (7 sets, daily range): BP systolic 108–126; BP diastolic 57–85; PULSE 63–78; RESP 17–18; TEMP 36.3–36.8; O2SAT 98–99; BMI 16.9
--- NOTE | 2024-09-15 12:10 | EKG12_ITS ---
Test Reason : CP Blood Pressure : */* mmHG Vent. Rate : 73 BPM Atrial Rate : 73 BPM P-R Int : 166 ms QRS Dur : 92 ms QT Int : 392 ms P-R-T Axes : 81 75 70 degrees QTcB Int : 431 ms Normal sinus rhythm Normal ECG Confirmed by GLENN REED, VICKI ([id number]), deputy editor in chief BEVERLY FARRELL ([id number]) on 09/16/2024 8:38:47 AM Referred By: JESSICA/JONATHAN Confirmed By: VICKI ELIZABETH MD
--- NOTE | 2024-09-15 12:10 | EDS_ITS ---
HPI History of Present Illness Chief Complaint: Chest Pain Informant: patient Narrative Narrative: 38-year-old male presenting to the emergency room with a chief complaint of chest pain. The patient states that for about the past hour he has had an epigastric pain that radiates up into his chest and goes into his back. States he was out doing yard work when symptoms began. After some discussion the patient informs me that around 530 this morning he injected Subutex into his left leg. He states he was a previous IV drug user and used up the veins in his bilateral arms. He states that this is the third time he has done it in the week prior to that he had been clean. He denies any vomiting. He denies any diarrhea. No prior history of pancreatitis or gallbladder disease. He notes no leg symptoms. No new arm symptoms. [facility] Medical History Substance abuse Anxiety and depression Bipolar 1 disorder Home Medications ?Medication ?Instructions ?Recorded ?Last Taken ?Type clonidine HCl 0.1 mg tablet 0.1 mg PO TID 05/23/17 Unk nown History buprenorphine 8 mg-naloxone 2 mg 1 ea PO BID 06/07/17 Unknown History sublingual film (Suboxone) lamotrigine 200 mg tablet 150 mg PO BID 06/07/17 Unkno wn History (Lamictal) quetiapine 300 mg tablet (Seroquel) 400 mg PO QHS 05/19 07/04 Unknown History citalopram 20 mg tablet 30 mg PO DAILY 12/23/18 Unkn own History acetaminophen 500 mg capsule 1,000 mg (2 x 500 mg) PO TID PRN 03/04/23 Unknown Rx (Mapap (acetaminophen)) PRN fever or pain #60 caps acetaminophen 500 mg capsule 500 mg PO Q6H PRN fever o r pain 05/08/24 Unknown Rx (Mapap (acetaminophen)) #60 caps amoxicillin 875 mg-potassium 1 tab PO BID #14 tabs Unknown Rx clavulanate 125 mg tablet naproxen 500 mg tablet 500 mg PO BID #20 tabs 06/26 Unknown Rx penicillin V potassium 250 mg 500 mg (2 x 250 mg) PO 4 X/DAY #40 06/26/24 Unknown Rx tablet tabs dicyclomine 20 mg tablet 20 mg PO TID PRN abdominal p ain 09/15/24 Unknown Rx #20 tabs Allergy/AdvReac Type Severity Reaction Status Date / Time red dye Allergy Swelling Verified 06/27/24 11:37 Social History household members: none Smoking Status: Current every day smoker tobacco type: cigarettes alcohol intake: former substance use type: former substance user and opiates ROS ROS ED Constitutional Constitutional ED: Denies chills, fever(s) or weight loss Eyes Eyes: Denies change in vision or diplopia ENT ENT ED: Denies ear pain, rhinorrhea or sore throat Cardiovascular Cardiovascular: Reports chest pain; Denies orthopnea, palpitations or racing heartbeat Respiratory/Chest Respiratory/Chest: Denies cough, dyspnea or orthopnea Gastrointestinal Gastrointestinal: Reports abdominal pain; Denies diarrhea, nausea or vomiting Genitourinary Genitourinary ED: Denies dysuria, hematuria or urinary frequency Musculoskeletal Musculoskeletal: Denies arthralgias or myalgias Integumentary Denies abscess or rash Neurologic Neurologic: Denies headache(s) or weakness Psychiatric Psychiatric: Denies anxiety, depression, suicidal ideation or suicidal thoughts Endocrine Endocrinology: Denies polydipsia, polyphagia or polyuria Allergic/Immunologic Allergic/Immunologic ED: Denies mouth swelling, tongue swelling or urticaria EXAM Physical Exam Const Vital Signs: 09/15/24 11:52 09/15/24 12:52 09/15/24 13:06 Temperature 97.3 F L Temperature Source Temporal Pulse Rate 75 67 67 Respiratory Rate 18 18 18 Blood Pressure 126/85 H 123/77 H 120/74 Blood Pressure Mean 98 92 89 Pulse Ox 99 98 98 Oxygen Delivery Method Room Air Room Air Room Air 09/15/24 14:00 09/15/24 15:00 09/15/24 16:00 Temperature Temperature Source Pulse Rate 70 63 78 Respiratory Rate 17 18 Blood Pressure 109/57 L 108/78 108/75 Blood Pressure Mean 74 88 86 Pulse Ox 98 99 Oxygen Delivery Method 09/15/24 16:05 Temperature 98.3 F Temperature Source Pulse Rate 78 Respiratory Rate 18 Blood Pressure 108/75 Blood Pressure Mean 86 Pulse Ox 99 Oxygen Delivery Method Positive well nourished and well developed General Appearance ED: well developed and NAD HEENT Reports normocephalic, head/scalp atraumatic and moist mucous membranes Eyes PERRL and EOMs intact bilaterally Neck no lymphadenopathy, supple and no JVD Resp normal respiratory effort and clear to auscultation bilaterally Cardio regular rate, regular rhythm and no murmurs GI normal to inspection, nondistended, normoactive bowel sounds and non-tender Palpation: soft Back/Spine no CVA tenderness and normal ROM Extremity Extremity Narrative: Patient has mild hand edema. There is a purpleish hue to the hands which she st ates is chronic due to his years of IV drug use. Neuro oriented x3 and CN's II-XII intact bilaterally Sensorium / Orientation: alert Motor Exam: strength 5/5 throughout Psych mental status grossly normal Mood & Affect: Negative for depressed or tearful Skin no rashes or lesions noted and no wounds Skin Narrative: Injection site on the medial distal right leg does not show any evidence of extravasation or infection. MDM MDM MDM Narrative Medical decision making narrative: Differential diagnosis includes acute coronary syndrome pulmonary embolism aortic dissection aneurysm cholelithiasis/biliary colic pancreatitis drug reaction Interpretation of the chest x-ray is no acute process. D-dimer within normal limits troponin is negative white count is normal at 7 lipase normal at 19. He does have elevation in the AST at 57 ALT 258 alk phos of 163. Normal bilirubin. Normal creatinine. Formal gallbladder ultrasound/right upper quadrant ultrasound was negative for acute findings. I performed a bedside fast and do not see an abdominal aortic aneurysm on measurements. He received a dose of Ativan. He understands that he needs to refrain from IV drug use. I can refer him to GI for the elevated liver enzymes and abdominal pain. Patient is going to be able to seek treatment on his own rather than admit to ramp program. Patient understands that he should follow-up for reasons such as hepatitis C further testing for HIV etc. History & Record Review Discussion w/independent historian: Patient Lab Data Attestation: I reviewed the patient's lab results. Labs: Laboratory Results - last 24 hr 09/15/24 09/15/24 09/15/24 12:45 12:45 14:44 WBC Cancelled 7.0 Corrected WBC Cancelled RBC Cancelled 4.55 L Hgb Cancelled 13.3 Hct Cancelled 39.6 L MCV Cancelled 87.0 MCH Cancelled 29.2 MCHC Cancelled 33.6 RDW Std Deviation Cancelled 44.2 H RDW Coeff of Nathan Cancelled 13.8 Plt Count Cancelled 222 MPV Cancelled 10.1 Immature Gran % (Auto) Cancelled 0.700 Neut % (Auto) Cancelled 81.5 H Lymph % (Auto) Cancelled 11.5 L [place] % (Auto) Cancelled 4.4 Eos % (Auto) Cancelled 1.0 Baso % (Auto) Cancelled 0.9 Absolute Neuts (auto) Cancelled 5.7 Absolute Lymphs (auto) Cancelled 0.81 L Total Counted Cancelled Neutrophils % (Manual) Cancelled Band Neutrophils % Cancelled Lymphocytes % (Manual) Cancelled Monocytes % (Manual) Cancelled Eosinophils % (Manual) Cancelled Basophils % (Manual) Cancelled Metamyelocytes % Cancelled Myelocytes % Cancelled Promyelocytes % Cancelled Blast Cells % Cancelled Plasma Cell % (Manual) Cancelled Other Cells % Cancelled Nucleated RBC % Cancelled 0 Nucleated RBCs/100 WBC Cancelled Differential Comment Cancelled Diff Path Review Cancelled Hypersegmented Neuts Cancelled Atypical Lymphocytes Cancelled Reactive Lymphocytes Cancelled Smudge Cells Cancelled Toxic Granulation Cancelled Toxic Vacuolation Cancelled Dohle Bodies Cancelled Vignesh Rods Cancelled Platelet Estimate Cancelled Plt Morphology Comment Cancelled RBC Morphology Cancelled Cancelled Polychromasia Cancelled Hypochromasia Cancelled Basophilic Stippling Cancelled Anisocytosis Cancelled Microcytosis Cancelled Macrocytosis Cancelled Spherocytes Cancelled Sickle Cells Cancelled Target Cells Cancelled Tear Drop Cells Cancelled Ovalocytes Cancelled Stomatocytes Cancelled [place]-S[place]ho Bodies Cancelled Avel Cells Cancelled Bite Cells Cancelled Crenated Cell Cancelled Acanthocytes (Spur) Cancelled Rouleaux Cancelled Schistocytes Cancelled D-Dimer Quant (PE/DVT) Cancelled 0.27 Sodium 136 Potassium 4.7 Chloride 102 Carbon Dioxide 21.5 Anion Gap 13 BUN 15 Creatinine 0.70 Estim Creat Clear Calc 123.55 Est GFR (MDRD) Non-Af 123 BUN/Creatinine Ratio 21.4 H Glucose 98 Calcium 9.2 Total Bilirubin 0.28 Direct Bilirubin < 0.08 AST 57 H ALT 258 H Alkaline Phosphatase 163 H Troponin T High Sens < 6 Troponin T Hi Sens 2 Hr < 6 Total Protein 7.0 Albumin 4.0 Globulin 3.0 Lipase 19 Radiography Diagnostic Testing: Clinical Impression(s) from Imaging Studies Chest X-Ray 09/15/24 12:50 IMPRESSION: No acute process detected. [facility] Gallbladder Ultrasound 09/15/24 15:03 IMPRESSION: NORMAL RIGHT UPPER QUADRANT ULTRASOUND. [facility]: Comments: Normal sinus rhythm ventricular rate of 73 bpm Discharge Plan Triage Chief Complaint: Chest Pain ED Provider: Waqas Gibson Dx/Rx/DC Orders Clinical Impression: Abdominal pain, acute, Acute chest pain, Elevated transaminase measurement, Active intravenous drug use Instructions: Abdominal Pain, ED Chest Pain, Noncardiac Prescriptions: New dicyclomine 20 mg tablet 20 mg PO TID PRN (Reason: abdominal pain) Qty: 20 0RF No Action clonidine HCl 0.1 MG tablet 0.1 mg PO TID lamotrigine [Lamictal] 200 MG tablet 150 mg PO BID quetiapine [Seroquel] 300 MG tablet 400 mg PO QHS buprenorphine-naloxone [Suboxone] 1 EACH film 1 ea PO BID citalopram 20 MG tablet 30 mg PO DAILY acetaminophen [Mapap (acetaminophen)] 500 mg capsule 1,000 mg PO TID PRN PRN (Reason: fever or pain) Qty: 60 0RF acetaminophen [Mapap (acetaminophen)] 500 mg capsule 500 mg PO Q6H PRN (Reason: fever or pain) Qty: 60 0RF penicillin V potassium 250 mg tablet 500 mg PO 4X/DAY Qty: 40 0RF naproxen 500 mg tablet 500 mg PO BID Qty: 20 0RF amoxicillin-pot clavulanate 875-125 mg tablet 1 tab PO BID Qty: 14 0RF Primary Care Provider: Care Physician,No Primary Referrals: Thelma Hamilton MD [Med Staff - Community Fundraiser] - As soon as possible (for primary care) Friend,DO Joseph [Med Staff - Active Staff] - (For GI Evaluation of pain and liver enzymes) Care Physician,No Primary [Primary Care Provider] - [facility] [Non-Staff] - (For abuse concerns) Print Language: Portuguese Disposition Disposition: Home, Self Care
[2024-09-15] MEDS: LORazepam 1 MG Tablet PO (12:43)
--- NOTE | 2024-09-15 12:50 | RAD_ITS ---
PROCEDURE: CHEST 1 VIEW (PORTABLE) 09/15/2024 REASON FOR EXAM: CHEST PAIN TECHNIQUE: Frontal view of the chest. COMPARISON: Chest radiograph 03/26/2022 FINDINGS: Hardware: None. Heart: Normal size and contour. Lungs: Lungs are clear. No pleural effusions. No pneumothorax. Bones: Unremarkable Other: RAD/Chest 1 View (Portable) IMPRESSION: No acute process detected. Reading Location[facility]
[2024-09-15 13:24] LABS: AST(SGOT) 57 U/L (<=37); Alanine Aminotransfer ALT/SGPT 258 U/L (<=46); Alkaline Phosphatase 163 U/L (40-129); Anion Gap 13 (5-15); BUN 15 mg/dL (4-19); BUN/Creat Ratio 21.4 RATIO (10-20); Bilirubin, Direct < 0.08 mg/dL (0.00-0.30); Calcium,Total 9.2 mg/dL (7.6-11.0); Carbon Dioxide 21.5 mmol/L (21.0-32.0); Chloride 102 mmol/L (98-108); EST Glomerular Filtration Rate 123 (>60); Estimated Creatinine Clearance 123.55 ml/min (50-250); Glucose 98 mg/dL (70-99); Lipase 19 U/L (13-75); Potassium 4.7 mmol/L (3.3-5.1); Sodium Level 136 mmol/L (133-145); Total Bilirubin 0.28 mg/dL (0.00-1.30); Troponin T High Sensitivity < 6 ng/L (<=22)
--- NOTE | 2024-09-15 15:03 | US_ITS ---
PROCEDURE: GALLBLADDER 09/15/2024 REASON FOR EXAM: ABDOMINAL PAIN COMPARISON: None FINDINGS: Liver: Grossly normal size and echotexture. The liver measures 17.4 cm. Gallbladder: No stones, sludge, wall thickening or tenderness. Common bile duct: Normal measuring 4 mm. Pancreas: Normal Other: Visualized portions of the right kidney are unremarkable. No right upper quadrant ascites. US/Gallbladder IMPRESSION: NORMAL RIGHT UPPER QUADRANT ULTRASOUND. Reading Location: [place] [id number]
[2024-09-15 15:11] LABS: Absolute Lymphocyte Count 0.81 X10^3/uL (0.83-4.51); Absolute Neutrophil Count 5.7 X10^3/uL (2.0-7.7); Basophil# 0.06 X10^3/uL; Basophil% 0.9 % (0-1); Eosinophil# 0.07 X10^3/uL; Hematocrit 39.6 % (40-54); Hemoglobin 13.3 g/dL (13.0-16.5); Lymphocyte # 0.81 X10^3/ul (0.83-4.51); Lymphocyte % 11.5 % (19-41); Mean Corp Hgb Conc 33.6 g/dL (32-36); Mean Corpuscular Hgb 29.2 pg (27.0-32.0); Mean Platelet Vol. 10.1 fl (6.2-12.0); Monocyte# 0.31 X10^3/uL; Monocyte% 4.4 % (0-10); NRBC Flagged by Analyzer 0 % (0-5); Neutrophil # 5.74 X10^3/uL (2.7-7.7); Neutrophil % 81.5 % (47-70); Platelet Count 222 K/mm3 (150-450); RBC Distribution Width CV 13.8 % (11.6-14.6); RBC Distribution Width SD 44.2 fl (35.1-43.9); Red Blood Count 4.55 M/mm3 (4.6-6.2)
[2024-09-15 15:27] LABS: Troponin T High Sens 2 HR < 6 ng/L (<=22)
[2024-09-15 15:30] LABS: D-Dimer Quantitative (DVT/PE) 0.27 FEU/ug/m (0.27-0.49)
== END 2024-09-15 16:13 | disposition home or self-care (01) ==
PROVIDERS: Emergency Provider Emergency Medicine; Visit Provider Emergency Medicine
DX: R07.9 Chest pain, unspecified (principal); F19.99 Other psychoactive substance use, unspecified with unspecified psychoactive substance-induced disorder; F31.9 Bipolar disorder, unspecified; F17.210 Nicotine dependence, cigarettes, uncomplicated; R74.01 Elevation of levels of liver transaminase levels; F41.9 Anxiety disorder, unspecified; R10.13 Epigastric pain
CPT/HCPCS: 71045; 76705; 80048; 80076; 83690; 84484; 85025; 85379; 93005; 99284; A4216